=== PATIENT | male | born 1965 | race Caucasian/White ===

== ENCOUNTER 2019-09-29 19:49 | Emergency (ER) | payer OTHER, SELFPAY ==
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
[2019-09-29 20:00] VITALS: BP 119/74; PULSE 92; RESP 18; TEMP 35.9; O2SAT 100
[2019-09-29 20:23] LABS: Basophils Percent Auto 0.3 % (0.2-1.2); Eosinophils Absolute Auto 0.1 K/mm3 (0-0.3); Eosinophils Percent Auto 1.3 % (0-4.4); Hematocrit 36.8 % (42.0-52.0); Hemoglobin 12.2 g/dL (14.0-18.0); Immature Granulocyte Absolute 0.02 K/mm3 (0.00-0.031); Immature Granulocyte Percent A 0.3 % (0-0.5); Lymphocytes Absolute Auto 1.71 K/mm3 (0.9-3.2); Lymphocytes Percent Auto 26.8 % (18.3-44.2); Mean Corpuscular HGB Conc 33.2 g/dl (32-36); Mean Corpuscular Hemoglobin 33.2 pg (26-34); Mean Corpuscular Volume 100.3 fl (80-100); Mean Platelet Volume 10.5 fl (7.4-10.4); Monocytes Absolute Auto 0.5 K/mm3 (0.1-0.6); Monocytes Percent Auto 8.2 % (2.6-8.5); Neutrophils Percent Auto 63.1 % (45.5-73.1); Platelet Count Result 344 k/mm3 (150-375); Red Blood Count 3.67 M/mm3 (4.6-6.20); Red Cell Distribution Width 13.3 % (11.5-14.5); White Blood Count 6.4 K/mm3 (4.5-10.0)
[2019-09-29 20:35] LABS: Ethanol < 10 mg/dL (<10)
[2019-09-29 20:57] LABS: Add Urine Microscopic? NO; Appearance Urine Clear (Clear); Bilirubin Urine Negative (Negative); Blood Urine Negative (Negative); Color Urine Yellow (Yellow); Glucose Urine UA Negative (Negative); Ketones Urine Negative (Negative); Leukocyte Esterase Ur Negative LEU/UL (Negative); Nitrate Urine Negative (Negative); Protein Urine Negative (Negative); Specific Grav Ur 1.015 (1.001-1.035); Urobilinogen Urine Negative mg/dL (<2.0)
[2019-09-29 21:05] LABS: Barbiturate Screen Urine Negative (Negative); Benzodiazepines Screen Urine Negative (Negative)
[2019-09-29 21:07] LABS: Amphetamine Screen Urine Negative (Negative); Cannabinoid Screen Urine Positive (Negative); Cocaine Screen Urine Negative (Negative); Opiate Screen Urine Positive (Negative); Phencyclidine Screen Urine Negative (Negative)
[2019-09-29] MEDS: OLANZapine 10 MG INJ VIAL IM (21:08)
[2019-09-29 21:10] LABS: Methadone Screen Urine Negative (Negative)
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
[2019-09-29 21:35] LABS: Alanine Aminotransferase 17 U/L (4-50); Albumin Level 4.5 g/dL (3.5-5.1); Alkaline Phosphatase 55 U/L (38-126); Aspartate Amino Transferase 30 U/L (17-59); Bilirubin,Total 0.2 mg/dL (0.2-1.3); Blood Urea Nitrogen 13 mg/dL (9-20); Calcium 9.1 mg/dL (8.4-10.2); Carbon Dioxide 25 mmol/L (22-30); Chloride 103 mmol/L (98-107); Estimated Glomerular Filt Rate > 60; Glucose 121 mg/dL (75-110); Potassium 3.8 mmol/L (3.4-5.0); Sodium 138 mmol/L (137-145)
--- NOTE | 2019-09-29 21:46 | PC.NURSE ---
Bushra LOPES here at this time.
--- NOTE | 2019-09-29 22:21 | PC.NURSE ---
Addendum entered by Flavio Arizmendi RN 09/30/19 07:01: Pt removed from lockable restraints and put into hand cuffs per [employer]. Original Note: Pt never descalated and was discharged into [facility] custody. Pt remosved from lockable restraints and pu
== END 2019-09-29 22:34 ==
LOC: ANHED 21:44
PROVIDERS: Emergency Provider Emergency Medicine; PCP Emergency Medicine
DX: R45.851 Suicidal ideations (principal); F31.9 Bipolar disorder, unspecified; F20.9 Schizophrenia, unspecified; E11.9 Type 2 diabetes mellitus without complications; I10 Essential (primary) hypertension; E78.5 Hyperlipidemia, unspecified; E03.9 Hypothyroidism, unspecified; Z87.891 Personal history of nicotine dependence
CPT/HCPCS: 36415; 80053; 80307; 81003; 84443; 85025; 96372; 99283

== ENCOUNTER 2019-12-25 23:51 | Emergency (ER) | payer OTHER, SELFPAY ==
--- NOTE | ~2019-12-25 | XR_ITS ---
EXAMINATION: XR ankle LT min 3V DATE: 12/26/2019 00:37 INDICATION: Left ankle pain. TECHNIQUE: 4 views of left ankle were obtained. COMPARISON: None. FINDINGS: Bone alignment is normal. No fracture. There is mild osteoarthritis of talonavicular joint. There are enthesophytes at the posterior and plantar aspects of calcaneal tuberosity. Ankle soft tis brit swelling is noted. IMPRESSION: 1. Mild osteoarthritis of talonavicular joint. Reviewed, dictated and finalized at location A.
[2019-12-25 23:59] VITALS: BP 129/65; PULSE 106; RESP 21; TEMP 36.9; O2SAT 100
--- NOTE | 2019-12-26 00:47 | PC.NURSE ---
Patient requested IV to be removed, stated it was giving me anxiety.
[2019-12-26 00:48] LABS: Basophils Percent Auto 0.5 % (0.2-1.2); Eosinophils Absolute Auto 0.3 K/mm3 (0-0.3); Eosinophils Percent Auto 3.2 % (0-4.4); Hematocrit 30.1 % (42.0-52.0); Hemoglobin 10.2 g/dL (14.0-18.0); Immature Granulocyte Absolute 0.02 K/mm3 (0.00-0.031); Immature Granulocyte Percent A 0.2 % (0-0.5); Lymphocytes Absolute Auto 2.06 K/mm3 (0.9-3.2); Lymphocytes Percent Auto 25.7 % (18.3-44.2); Mean Corpuscular HGB Conc 33.9 g/dl (32-36); Mean Corpuscular Hemoglobin 34.1 pg (26-34); Mean Corpuscular Volume 100.7 fl (80-100); Monocytes Absolute Auto 0.7 K/mm3 (0.1-0.6); Monocytes Percent Auto 9.2 % (2.6-8.5); Neutrophils Absolute Auto 4.9 K/mm3 (1.3-6.7); Neutrophils Percent Auto 61.2 % (45.5-73.1); Platelet Count Result 341 k/mm3 (150-375); Red Blood Count 2.99 M/mm3 (4.6-6.20); Red Cell Distribution Width 13.2 % (11.5-14.5)
[2019-12-26 00:57] LABS: Prothrombin Time 12.7 Seconds (11.1-14.7)
[2019-12-26 00:58] LABS: Lactic Acid Reflex 1.1 mmol/L (0.7-2.1)
[2019-12-26 00:59] LABS: Alanine Aminotransferase 66 U/L (4-50); Albumin Level 3.5 g/dL (3.5-5.1); Alkaline Phosphatase 83 U/L (38-126); Aspartate Amino Transferase 96 U/L (17-59); Bilirubin,Total 0.3 mg/dL (0.2-1.3); Blood Urea Nitrogen 8 mg/dL (9-20); Calcium 8.2 mg/dL (8.4-10.2); Carbon Dioxide 25 mmol/L (22-30); Chloride 101 mmol/L (98-107); Estimated CRCL calculation 100 ml/min; Estimated Glomerular Filt Rate > 60; Glucose 214 mg/dL (75-110); Potassium 3.9 mmol/L (3.4-5.0); Sodium 131 mmol/L (137-145)
[2019-12-26 01:00] LABS: Partial Thromboplastin Time 31.4 SECONDS (22.3-36.8)
--- NOTE | 2019-12-26 01:15 | PC.NURSE ---
Patient states he is starting to have a panic attack and would like to leave. EDP Tanner notified.
[2019-12-26 01:51] VITALS: BP 142/60; PULSE 100; RESP 14; O2SAT 100
--- NOTE | 2019-12-26 02:15 | ED.GENADULT ---
HPI - General Adult General Chief complaint: Skin/Abscess/Foreign Body Stated complaint: left foot swollen Time Seen by Provider: 12/26/19 00:09 Source: RN notes reviewed History of Present Illness HPI narrative: Patient presents emergency department from home for swelling of his left lower extremity. Patient states symptoms began approximately 3 days ago he notes some swelling to his left ankle up to his mid carroll with erythema present denies any wounds he states it is tender to palpation but denies any trauma patient denies any fevers or chills chest pain shortness of breath or any other symptoms states he is a diabetic. Related Data Allergies Allergy/AdvReac Type Severity Reaction Status Date / Time ibuprofen Allergy Unknown Hives Verified 12/25/19 23:58 Review of Systems Review of Systems: Narrative: Gen.: Denies fevers or chills Eyes: Denies eye pain or visual change ENT: Denies congestion Respiratory: Denies shortness of breath or cough CV: Denies chest pain or palpitations GI: Denies abdominal pain nausea, emesis or diarrhea Musculoskeletal: See HPI Neuro: Denies numbness, tingling, weakness or focal weakness Skin: Denies rash notes erythema left lower extremity Except as documented, all other systems reviewed and negative [facility] Past Medical History Medical History Bipolar 1 disorder Depression DM (diabetes mellitus) H/O: HTN (hypertension) HLD (hyperlipidemia) Hypothyroid Schizophrenia Social History Social History Smoking status: Former smoker Alcohol intake: current Gender identity (if verbalized by the patient): Male Exam Narrative: Exam Narrative: APPEARANCE: No acute distress, nontoxic, resting in bed EYES: EOMI HEENT: Normocephalic, atraumatic, OMM RESPIRATORY: No respiratory distress Clear to auscultation bilaterally with no rhonchi wheezing or rales. CARDIOVASCULAR: Regular rate and rhythm without murmurs rubs or gallops. ABDOMINAL: Soft, nontender, nondistended, no rebound or guarding MUSCULOSKELETAl: Moves all extremities. No clubbing, cyanosis 2+ edema in the left lower extremity, erythema of the left ankle up to the mid carroll no open wounds no tenderness to palpation of the left ankle or knee with full range of motion of both, dorsalis pedis pulse 2+ neurovascular intact NEURO: Awake and alert x 3. Following commands, speech normal, no focal deficits SKIN:: Warm, dry. No rashes lesions or abrasions PSYCHIATRIC: Normal affect/mood, Course Course Emergency Course: Patient is up walking on the foot Discussed with patient concern of cellulitis discussed need for rule out blood clot patient initially had an IV in an attempt to take an IV out and I discussed need for initial course of IV antibiotics and request for admission for further treatment patient is refusing IV to be reestablished and refusing to stay. We had a long discussion with all risks and benefits discussed including risk of worsening cellulitis, sepsis, loss of leg blood clot in the left leg pulmonary embolism, cardiopulmonary arrest and . The patient continues to refuse admission. The patient is a and alert x4. I discussed with him that if he is leaving AMA and started on oral antibiotics and we discussed this the patient being set up for a ultrasound of his leg in the morning. No middle send the patient up for his ultrasound in the morning the patient states he can no longer stay here and wants to leave immediately. I discussed with him I have not talked to Dr. Wright to set up his ultrasound and I discussed giving Lovenox and the patient again is refusing any further injections and refusing Lovenox. The patient was given discharge instructions and told he may return anytime he was given prescription for Keflex AMA form was filled out Vital Signs Vital signs: Vital Signs Temperature 98.4 F 12/25/19 23:59 Pulse Rate 10
[2019-12-26] MEDS: CEPHALEXIN 500 MG CAPSULE PO (02:18)
== END 2019-12-26 02:27 | disposition left against medical advice (07) ==
PROVIDERS: Emergency Provider Emergency Medicine; PCP Emergency Medicine
DX: L03.116 Cellulitis of left lower limb (principal); E11.9 Type 2 diabetes mellitus without complications; Z87.891 Personal history of nicotine dependence; I10 Essential (primary) hypertension; E78.5 Hyperlipidemia, unspecified; E03.9 Hypothyroidism, unspecified
CPT/HCPCS: 36415; 73610; 80053; 83605; 85025; 85610; 85730; 87040; 99283; A9270

== ENCOUNTER 2019-12-26 07:40 | Outpatient (CLI) | payer OTHER, SELFPAY ==
--- NOTE | ~2019-12-26 | US_ITS ---
EXAMINATION: US venous doppler [facility] DATE: 12/26/2019 08:15 INDICATION: Left calf pain. TECHNIQUE: Grayscale ultrasound images without and with compression and Doppler ultrasound images of the left lower extremity veins were obtained. COMPARISON: None. FINDINGS: The visualized portions of left common femoral vein, profunda (deep) femoral vein, femoral vein, popl iteal vein, peroneal veins, posterior tibial veins, and greater saphenous vein outflow are patent. IMPRESSION: 1. No deep venous thrombosis. Reviewed, dictated and finalized at location A.
== END 2019-12-26 07:41 | disposition home or self-care (01) ==
LOC: ANHIMG 07:44
PROVIDERS: PCP Emergency Medicine; Visit Provider Emergency Medicine
DX: M79.662 Pain in left lower leg (principal)
CPT/HCPCS: 93971

== ENCOUNTER 2020-01-01 19:09 | Emergency (ER) | payer OTHER, SELFPAY ==
[2020-01-01 19:07] VITALS: BP 132/84; PULSE 108; RESP 20; TEMP 36.7; O2SAT 97
--- NOTE | 2020-01-01 20:11 | ED.GENADULT ---
HPI - General Adult General Chief complaint: Unspecified <DALE Jurado Last Filed: 01/01/20 20:45> Stated complaint: out of meds <DALE Jurado Last Filed: 01/01/20 20:45> Time Seen by Provider: 01/01/20 19:56 <DALE Jurado Last Filed: 01/01/20 20:45> Source: patient, old records reviewed and other <DALE Jurado Last Filed: 01/01/20 20:45> Mode of arrival: EMS <DALE Jurado Last Filed: 01/01/20 20:45> Limitations: no limitations <DALE Jurado Last Filed: 01/01/20 20:45> History of Present Illness HPI narrative: Patient is a 54-year-old male who presents from home for evaluation of wanting his medications filled patient with history of psychosis lives in an apartment was seen by his specialist Dr. Townsend today who filled his medications patient is yet to go and get them. Patient with history of schizophrenia tardive dyskinesia patient denies any pain at this time does note some reflux and anxiety. Patient notes that he feels comfortable to go home and prefers to be discharged at this time. Patient has been offered some Ativan as recommended by his primary care and is in agreement with this. Patient has no other complaints and denies any injury trauma or recent illness <DALE Jurado Last Filed: 01/01/20 20:45> Related Data Home medications: Home Medications Medication Instructions Recorded Confirmed aripiprazole mg 01/01/20 01/01/20 clonazepam 01/01/20 famotidine 01/01/20 levothyroxine 01/01/20 lisinopril 01/01/20 loxapine succinate mg 01/01/20 metformin mg 01/01/20 simvastatin mg 01/01/20 trihexyphenidyl 01/01/20 venlafaxine mg PO 01/01/20 <DALE Jurado Last Filed: 01/01/20 20:45> Allergies/adverse reactions: Allergies Allergy/AdvReac Type Severity Reaction Status Date / Time ibuprofen Allergy Unknown Hives Verified 12/25/19 23:58 <DALE Jurado Last Filed: 01/01/20 20:45> Review of Systems Review of Systems: All systems reviewed & are unremarkable except as noted in HPI and below <Wilton Doan PA-C - Last Filed: 01/01/20 20:45> PMFSH Past Medical History Medical History: Medical History Bipolar 1 disorder Depression DM (diabetes mellitus) H/O: HTN (hypertension) HLD (hyperlipidemia) Hypothyroid Schizophrenia <Wilton Doan PA-C - Last Filed: 01/01/20 20:45> Surgical History Surgical History: Surgical History Surgical history unknown <Wilton Doan PA-C - Last Filed: 01/01/20 20:45> Social History Social History: Social History Smoking status: Former smoker Alcohol intake: current Gender identity (if verbalized by the patient): Male <Wilton Doan PA-C - Last Filed: 01/01/20 20:45> Exam Narrative: Exam Narrative: GENERAL: Well-appearing, well-nourished, and in no acute distress. HEAD: Normocephalic, atraumatic. EYES: PERRLA and EOMI. ENT: Nares clear, no rhinorrhea or epistaxis. Mucous membranes moist. CHEST: Clear to auscultation. No respiratory distress. No wheezes rales or rhonchi HEART: Regular rate and rhythm. No murmur heard. Normal peripheral pulses. ABDOMEN: Soft, nontender, nondistended EXTREMITIES: Normal range of motion. No edema. SKIN: Warm, dry, no rash. NEURO: No focal deficits. Alert and oriented x3. Cranial nerves II through XII grossly intact. Patient with tremor PSYCH: Normal mood and affect. <Wilton oDan PA-C - Last Filed: 01/01/20 20:45> Course Course Emergency Course: Patient in the room in no distress aware of case findings treatment plan and diagnosis agreeing to follow-up as directed or to return if symptoms worsen or concerns <Wilton Doan PA-C - Last Filed:
[2020-01-01] MEDS: FAMOTIDINE 20 MG TABLET PO (20:15)
[2020-01-01] MEDS: LORAZEPAM 0.5 MG TABLET PO (20:15)
--- NOTE | 2020-01-01 20:35 | PC.NURSE ---
Pt sister stating that pt cannot come home to her house. Pt requests us to call Daryl at [phone]. Call attempted, no answer. Pt made aware. Pt adamantly refusing any treatment at this time. Stating If you try to put an IV in me we will have big problems.
--- NOTE | 2020-01-01 20:43 | PC.NURSE ---
Daryl, pt friend returned call. States he can pick him up in 30 min. EDP made aware.
[2020-01-01 21:04] VITALS: BP 130/70; PULSE 80; RESP 20; O2SAT 99
== END 2020-01-01 21:05 | disposition left against medical advice (07) ==
PROVIDERS: Emergency Provider Emergency Medicine; PCP Emergency Medicine
DX: F41.9 Anxiety disorder, unspecified (principal); F31.9 Bipolar disorder, unspecified; E11.9 Type 2 diabetes mellitus without complications; I10 Essential (primary) hypertension; E78.5 Hyperlipidemia, unspecified; F20.9 Schizophrenia, unspecified; Z87.891 Personal history of nicotine dependence; Z79.84 Long term (current) use of oral hypoglycemic drugs
CPT/HCPCS: 99283; A9270

== ENCOUNTER 2020-09-18 12:14 | Outpatient (CLI) | payer OTHER, SELFPAY ==
--- NOTE | ~2020-09-18 | CT_ITS ---
EXAMINATION:CT lung screening DATE: 09/18/2020 12:35 INDICATION: Personal history of tobacco dependence. Current smoker with 30 pack year history. TECHNIQUE: Computed tomography (CT) of the chest was performed without intravenous contrast. Automate d exposure control and iterative reconstruction technique were employed. The dose-length product (DLP ) was 90.66 mGy-cm. COMPARISON: Chest CT 08/10/2018 FINDINGS: There is mild emphysema. There is mild scarring at the lung apices. There are patchy ground glass opacities in the lingula. There is a new 11 mm nodule in left upper lobe. A calcified right nae g nodule and calcified right hilar lymph nodes are consistent with old granulomatous disease. No pleu ral effusion. There is stable mild mediastinal lymphadenopathy, likely reactive. There is a small sli ding hiatal hernia. Calcifications in the spleen are consistent with old granulomatous disease. There is a 2.5 cm cyst in left kidney. There is an old healed right rib fracture. IMPRESSION: 1. Lung-RADS category 4B: Very suspicious. Given the findings in the lingula, noncontrast chest CT is recommended in 1 month to exclude infection prior to proceeding with CT-guided biopsy. Reviewed, dictated and finalized at location A. NT ACQUISITION CONSULTANT IMPRESSION: 1. Lung-RADS category 4B: Very suspicious. Given the findings in the lingula, n oncontrast chest CT is recommended in 1 month to exclude infection prior to pro ceeding with CT-guided biopsy.
== END 2020-09-18 12:15 | disposition home or self-care (01) ==
LOC: ANHIMG 12:22
PROVIDERS: PCP Internal Medicine; Visit Provider Internal Medicine
DX: Z12.2 Encounter for screening for malignant neoplasm of respiratory organs (principal); Z87.891 Personal history of nicotine dependence; R91.8 Other nonspecific abnormal finding of lung field
CPT/HCPCS: 71271

== ENCOUNTER 2020-12-15 13:49 | Outpatient (CLI) | payer OTHER, SELFPAY ==
--- NOTE | ~2020-12-15 | CT_ITS ---
EXAMINATION:CT diagnostic chest wo con DATE: 12/15/2020 14:32 INDICATION: Lung nodule. TECHNIQUE: Computed tomography (CT) of the chest was performed without intravenous contrast. Automate d exposure control and iterative reconstruction technique were employed. The dose-length product (DLP ) was 102.52 mGy-cm. COMPARISON: Chest CT 09/18/2020, 08/10/18 FINDINGS: There is scarring at the lung apices. There is mild emphysema. Calcified right lung nodules and calcified right hilar and mediastinal lymph nodes are consistent with old granulomatous disease. There is a 2 mm nodule in right upper lobe, likely benign. There is a 10 mm nodule in left upper lob e abutting the major fissure. No pleural effusion. The heart size is normal. There are coronary arter y calcifications. No pericardial effusion. Calcifications in the spleen are consistent with old granu lomatous disease. There is a 2.8 cm cyst in left kidney. There are old healed right rib fractures. IMPRESSION: 1. 10 mm left upper lobe pulmonary nodule, stable from 09/18/2020 and new from 08/10/2018. The shape of the nodule suggests infection/scarring may be more likely than malignancy. Consider PET/CT. Reviewed, dictated and finalized at location B. IMPRESSION: 1. 10 mm left upper lobe pulmonary nodule, stable from 09/18/2020 and new from . The shape of the nodule suggests infection/scarring may be more likel y than malignancy. Consider PET/CT.
== END 2020-12-15 13:50 | disposition home or self-care (01) ==
PROVIDERS: PCP Internal Medicine; Visit Provider Internal Medicine
DX: R91.1 Solitary pulmonary nodule (principal)
CPT/HCPCS: 71250

== ENCOUNTER 2021-03-09 13:32 | Outpatient (CLI) | payer OTHER, SELFPAY ==
--- NOTE | ~2021-03-09 | CT_ITS ---
EXAMINATION: CT diagnostic chest wo con DATE: 03/09/2021 14:04 INDICATION: Left upper lobe pulmonary nodule TECHNIQUE: Computed tomography (CT) of the chest was performed without intravenous contrast. Automate d exposure control and iterative reconstruction technique were employed. Exam dose: 167.31 mGy-cm to minal exam DLP. COMPARISON: 12/15/2020 CT chest 09/18/2020 CT lung screening 08/10/2018 CT chest FINDINGS: There is a focal approximately 1 cm area of irregular soft tissue density in the posterior left upper lobe with some associated anterior tenting of the greater fissure at this location. There was some focal tree-in-bud infiltrate in this location on 08/10/2018 CT chest. Post-infectious residua l benign chronic scarring is suggested. The appearance is stable since 09/18/2020. Follow-up CT imagin g in 6 months is recommended to document expected stability. Calcified right lower lobe pulmonary granulomas, calcified right hilar nodes and calcified hepatic an d splenic granulomas, consistent with old granulomatous disease. There is mild emphysema. No pulmonary infiltrate or consolidation or pulmonary mass lesion is noted otherwise. Normal heart size. Coronary artery calcification. No pericardial or pleural effusion. No thoracic aortic aneurysm. No hilar or mediastinal mass lesion or lymphadenopathy. Very small sliding hiatal hernia. Normal morphology of the adrenal glands. 2.5 cm left renal cyst. No suspicious osteolytic or osteoblastic lesions. IMPRESSION: Probable chronic focal postinfectious chronic benign scarring in the posterior left uppe r lobe; recommend [address] follow-up to document stability Reviewed, dictated and finalized at Location A. Reviewed, dictated and finalized at location A. IMPRESSION: Probable chronic focal postinfectious chronic benign scarring in t he posterior left upper lobe; recommend [address] follow-up to document stabil ity
== END 2021-03-09 13:33 | disposition home or self-care (01) ==
PROVIDERS: PCP Internal Medicine; Visit Provider Internal Medicine
DX: R91.1 Solitary pulmonary nodule (principal); R91.8 Other nonspecific abnormal finding of lung field
CPT/HCPCS: 71250

== ENCOUNTER 2022-01-11 11:49 | Emergency (ER) | payer OTHER, SELFPAY ==
[2022-01-11 11:55] VITALS: BP 173/87; PULSE 68; RESP 17; TEMP 36.4; O2SAT 100
[2022-01-11 12:00] LABS: Glucose Point of Care 158 mg/dl (65-105)
--- NOTE | 2022-01-11 12:04 | ECG_ITS ---
Measurements Intervals [place] Rate: 57 P: 42 AK: 143 QRS: 63 QRSD: 102 T: 72 QT: 416 QTc: 407 Interpretive Statements SINUS BRADYCARDIA WITH SINUS ARRHYTHMIA BASELINE ARTIFACT NONSPECIFIC ST AND T-WAVE ABNORMALITY BORDERLINE ECG NO PREVIOUS ECG AVAILABLE FOR COMPARISON Electronically Signed On 01-11-2022 15:03:07 CDT by Preston White M.D.
--- NOTE | 2022-01-11 12:14 | ED.GENADULT ---
HPI - General Adult General Chief complaint: Neuro Symptoms/Deficit Stated complaint: eyes are rolling back Time Seen by Provider: 01/11/22 12:05 History of Present Illness HPI narrative: Sister days that patient's eyes rolled back in his head, but he didn't pass out. She gave him some chocolate mild and he says he feels better. Pt is refusing further testing now and wants to sign out and go home. Pt had not eaten and says he thinks his blood sugar was low. Pt agrees to follow up with PCP. Related Data Home Medications Medication Instructions Recorded Confirmed aripiprazole 5 mg tablet mg 01/01/20 01/01/20 clonazepam 0.5 mg tablet 01/01/20 famotidine 40 mg tablet 01/01/20 levothyroxine 88 mcg tablet 01/01/20 lisinopril 20 mg tablet 01/01/20 loxapine succinate 10 mg capsule mg 01/01/20 metformin 500 mg tablet mg 01/01/20 simvastatin 40 mg tablet mg 01/01/20 trihexyphenidyl 5 mg tablet 01/01/20 venlafaxine 75 mg capsule,extended mg PO 01/01/20 release 24 hr Allergies Allergy/AdvReac Type Severity Reaction Status Date / Time ibuprofen Allergy Unknown Hives Verified 12/25/19 23:58 Review of Systems Review of Systems: All systems reviewed & are unremarkable except as noted in HPI and below PMFSH Past Medical History Medical History (Updated 01/11/22 @ 12:21 by Ismael Brown III, ) Bipolar 1 disorder Depression DM (diabetes mellitus) H/O: HTN (hypertension) HLD (hyperlipidemia) Hypothyroid Schizophrenia Surgical History Surgical History Surgical history unknown Social History Social History Smoking status: Former smoker Alcohol intake: current Gender identity (if verbalized by the patient): Male Exam Const: General: cooperative, comfortable, no acute distress and awake Nutritional Appearance: thin Orientation/consciousness: patient oriented x3 Limitations: no limitations HENMT: Head: normal to inspection Ears: hearing grossly normal bilaterally Mouth: Yes Normal oral and palatal mucosa present Neck: Neck: normal visual inspection, full ROM and no meningeal signs Chest: Chest palpation & inspection: normal inspection of the chest Resp: Effort & Inspection: normal respiratory effort Auscultation: clear to auscultation bilaterally Cardio: Rate: bradycardic Rhythm: regular rhythm GI: GI Palp: Yes Soft to palpation Percussion: Yes normal to percussion Auscultation: normal bowel sounds Skin: General skin exam: normal color Lesions: no lesions Rashes: no rashes Wounds: no wounds Neuro: General: patient oriented x3 Cranial nerves: Yes CN's II-XII intact bilaterally and Yes Nystagmus not present Speech: normal speech Motor exam (neuro): 5/5 motor strength present throughout Sensory Exam: normal sensation Extrem: General: normal to inspection and no pedal edema Psych: Appearance: grossly normal Speech and movement: Normal speech and movement present Affect: normal affect Attitude: cooperative Thought content: Yes Normal thought content present Insight: Fair insight present (Psych) Judgement: Fair judgement present (Psych) Course Course Emergency Course: pt says he is fine and refuses further testing. Pt will sign AMA and will go see PCP Vital Signs Vital signs: Vital Signs Temperature 97.6 F 01/11/22 11:55 Pulse Rate 68 01/11/22 11:55 Respiratory Rate 17 01/11/22 11:55 Blood Pressure 173/87 H 01/11/22 11:55 Pulse Oximetry 100 01/11/22 11:55 Oxygen Delivery Room Air 01/11/22 11:55 Temperature 97.6 F 01/11/22 11:55 Pulse Rate 68 01/11/22 11:55 Respiratory Rate 17 01/11/22 11:55 Blood Pressure 173/87 H 01/11/22 11:55 Pulse Oximetry 100 01/11/22 11:55 Oxygen Delivery Room Air 01/11/22 11:55 Medical Decision Making Vital Signs Vital Signs: Vital Signs Temperature 97.6 F 12/23
== END 2022-01-11 12:33 | disposition left against medical advice (07) ==
PROVIDERS: Emergency Provider Emergency Medicine; PCP Internal Medicine
DX: E11.649 Type 2 diabetes mellitus with hypoglycemia without coma (principal); I10 Essential (primary) hypertension; E78.5 Hyperlipidemia, unspecified; E03.9 Hypothyroidism, unspecified; F31.9 Bipolar disorder, unspecified; F20.9 Schizophrenia, unspecified; Z79.84 Long term (current) use of oral hypoglycemic drugs; Z87.891 Personal history of nicotine dependence
CPT/HCPCS: 82948; 93005; 99283

== ENCOUNTER 2022-01-27 12:42 | Outpatient (CLI) | payer OTHER, SELFPAY ==
--- NOTE | ~2022-01-27 | CT_ITS ---
EXAMINATION: CT diagnostic chest wo con DATE: 01/27/2022 13:03 INDICATION: Left upper lobe nodule TECHNIQUE: Computed tomography (CT) of the chest was performed without intravenous contrast. Automate d exposure control and iterative reconstruction technique were employed. Exam dose: 160.98 mGy-cm to minal exam DLP. COMPARISON: 03/09/2021 CT chest 12/15/2020 CT chest 09/18/2020 CT lung screening 08/10/2018 CT chest FINDINGS: Stable probable approximately 1 cm scar posterior segment of the left upper lobe with assoc iated mild tenting of the greater fissure. This is stable since September 18, 2020, likely residual po stinfectious scarring. There is interval patchy groundglass infiltrate in the right apical area since the prior CT examinati ons, which may represent mild infectious or inflammatory process. The lungs are otherwise clear of infiltrate or consolidation. There is bilateral hyperinflation. Normal heart size. Coronary artery calcification. No pericardial effusion. No thoracic aortic aneurysm or dissection. No hilar or mediastinal mass lesion or lymphadenopathy. Ca lcified right hilar and subcarinal nodes and calcified right lower lobe pulmonary granuloma, calcifie d hepatic and splenic granulomas, consistent with old granulomatous disease. Approximately 2.7 cm upper pole posterior left renal cyst No suspicious osteolytic or osteoblastic lesions. IMPRESSION: Stable posterior segment left upper lobe scar, unchanged since 09/18/2020 Patchy groundglass infiltrate, right apical area, which may be due to infectious or inflammatory proc ess COPD Old granulomatous disease Reviewed, dictated and finalized at [facility]. Reviewed, dictated and finalized at [facility]. IMPRESSION: Stable posterior segment left upper lobe scar, unchanged since 08/25 Patchy groundglass infiltrate, right apical area, which may be due to infectiou s or inflammatory process COPD Old granulomatous disease
== END 2022-01-27 12:43 | disposition home or self-care (01) ==
PROVIDERS: PCP Internal Medicine; Visit Provider Internal Medicine
DX: R91.1 Solitary pulmonary nodule (principal); J44.9 Chronic obstructive pulmonary disease, unspecified; R91.8 Other nonspecific abnormal finding of lung field
CPT/HCPCS: 71250

== ENCOUNTER 2022-04-22 12:25 | Emergency (ER) | payer OTHER, SELFPAY ==
--- NOTE | ~2022-04-22 | XR_ITS ---
XR chest 1V portable 04/22/2022 13:31 Indication: Chest pain Procedure: AP portable chest Comparison: 03/17/2012 Findings: Heart size normal. The lungs are hyperinflated which is consistent with, but not diagnostic of chronic obstructive pulmonary disease. No focal pneumonia, edema, pleural effusion or pneumothora x. There are healed right fifth and sixth rib fractures. Impression: 1: No acute cardiopulmonary disease. Reviewed, dictated and finalized at [facility]. Impression: 1: No acute cardiopulmonary disease.
[2022-04-22 12:48] VITALS: BP 102/72; PULSE 80; RESP 14; TEMP 36.6; O2SAT 97
--- NOTE | 2022-04-22 12:49 | ECG_ITS ---
Measurements Intervals [place] Rate: 77 P: 69 TN: 144 QRS: 28 QRSD: 100 T: 61 QT: 366 QTc: 416 Interpretive Statements SINUS RHYTHM NORMAL ECG COMPARED TO ECG 01/11/2022 12:01:32 PREVIOUSLY SEEN T-WAVE ABNORMALITY HAS RESOLVED Electronically Signed On 04-25-2022 14:23:59 CDT by Atul Avery M.D.
[2022-04-22 12:53] VITALS: PULSE 79
--- NOTE | 2022-04-22 12:53 | ED.CHESTPAIN ---
HPI - Chest Pain General Chief Complaint: Chest Pain Stated Complaint: chest pain, resolved Time Seen by Provider: 04/22/22 12:41 Source: patient and EMS Mode of arrival: EMS Limitations: no limitations History of Present Illness HPI narrative: [age] years old white male came to the emergency room from home by ambulance complaining of left chest pain, heaviness, worse with deep breathing, started at rest, lasted for less than 15 minutes, intermittent over the last 2 hours. Currently patient is asymptomatic. Patient had cannabis on board few minutes prior to that. History of diabetes, hypertension, hyperlipidemia, bipolar, schizophrenia, depression Related Data Home Medications Medication Instructions Recorded Confirmed aripiprazole 5 mg tablet mg 01/01/20 01/01/20 clonazepam 0.5 mg tablet 01/01/20 famotidine 40 mg tablet 01/01/20 levothyroxine 88 mcg tablet 01/01/20 lisinopril 20 mg tablet 01/01/20 loxapine succinate 10 mg capsule mg 01/01/20 metformin 500 mg tablet mg 01/01/20 simvastatin 40 mg tablet mg 01/01/20 trihexyphenidyl 5 mg tablet 01/01/20 venlafaxine 75 mg capsule,extended mg PO 01/01/20 release 24 hr Allergies Allergy/AdvReac Type Severity Reaction Status Date / Time ibuprofen Allergy Unknown Hives Verified 04/22/22 12:53 Review of Systems Review of Systems: All systems reviewed & are unremarkable except as noted in HPI and below PMFSH Past Medical History Medical History (Updated 04/22/22 @ 15:10 by Charlene Suero MD) Bipolar 1 disorder Depression DM (diabetes mellitus) H/O: HTN (hypertension) HLD (hyperlipidemia) Hypothyroid Schizophrenia Surgical History Surgical History Surgical history unknown Social History Social History Smoking status: Former smoker Alcohol intake: current Gender identity (if verbalized by the patient): Male Exam Narrative: General appearance: Well-developed, well-nourished Skin: Normal color Head: Normocephalic, nontraumatic Eyes: Clear conjunctiva ENT: Oropharynx normal, ears normal, nose normal Neck: Supple, nontender Chest and respiratory: Airway patent, no respiratory distress, no accessory muscle use Heart: Regular rate/rhythm Abdomen: Soft, nontender, no organomegaly, quiet bowel sounds Vascular: Normal peripheral pulses, normal capillary refill. Musculoskeletal: Normal range of motion, nontender back Neurologic: Alert and oriented ?3, HEATING TECHNICIAN is normal as tested, no gross motor deficit Course Reevaluation(s) Reevaluation #1: Patient left AGAINST MEDICAL ADVICE. I declare that I have personally explained to the patient the risks and consequences involved in leaving this facility at this time. the benefits of continued treatment and/or hospitalization. And the alternatives. If any. to continued treatment and/or hospitalization. if applicable.I have not identified any psychosis, drugs, mental illness, or medical illness that alters decision-making capacity (reasoning abilities ). Vital Signs Vital signs: Vital Signs Temperature 36.6 C 04/22/22 12:48 Pulse Rate 80 04/22/22 12:48 Respiratory Rate 14 04/22/22 12:48 Blood Pressure 102/72 04/22/22 12:48 Pulse Oximetry 97 04/22/22 12:48 Oxygen Delivery Room Air 04/22/22 12:48 Temperature 36.6 C 04/22/22 12:48 Pulse Rate 79 04/22/22 12:53 Respiratory Rate 14 04/22/22 12:48 Blood Pressure 102/72 04/22/22 12:48 Pulse Oximetry 97 04/22/22 12:48 Oxygen Delivery Room Air 04/22/22 12:53 MDM - Chest Pain Differential Diagnosis Differential diagnosis: Likely
[2022-04-22 13:48] LABS: Basophils Absolute Auto 0.1 K/mm3 (0.0-0.1); Basophils Percent Auto 0.7 % (0.2-1.2); Eosinophils Absolute Auto 0.6 K/mm3 (0-0.3); Eosinophils Percent Auto 7.2 % (0-4.4); Immature Granulocyte Absolute 0.02 K/mm3 (0.00-0.031); Immature Granulocyte Percent A 0.2 % (0-0.5); Lymphocytes Absolute Auto 2.05 K/mm3 (0.9-3.2); Lymphocytes Percent Auto 25.1 % (18.3-44.2); Mean Corpuscular HGB Conc 35.1 g/dl (32-36); Mean Corpuscular Hemoglobin 34.2 pg (26-34); Mean Corpuscular Volume 97.4 fl (80-100); Mean Platelet Volume 9.4 fl (7.4-10.4); Monocytes Absolute Auto 0.7 K/mm3 (0.1-0.6); Monocytes Percent Auto 8.9 % (2.6-8.5); Neutrophils Absolute Auto 4.7 K/mm3 (1.3-6.7); Neutrophils Percent Auto 57.9 % (45.5-73.1); Platelet Count Result 267 k/mm3 (150-375); Red Cell Distribution Width 12.4 % (11.5-14.5); White Blood Count 8.2 K/mm3 (4.5-10.0)
--- NOTE | 2022-04-22 13:57 | PC.NURSE ---
The pt met me in the hallway asking to use the phone. I directed him to the phone. Pt informs me that he is calling for a ride because he is ready to go home. Dr. Suero informed. Pt has signed AMA paperwork. Pt is A&Ox4 and in no acute distress on leaving. Pt encouraged to return at any time.
[2022-04-22 13:58] LABS: Alanine Aminotransferase 26 U/L (6-50); Albumin Level 3.9 g/dL (3.5-5.1); Alkaline Phosphatase 67 U/L (38-126); Anion Gap 7 mmol/L (8-16); Aspartate Amino Transferase 33 U/L (17-59); Bilirubin,Total 0.3 mg/dL (0.2-1.3); Blood Urea Nitrogen 23 mg/dL (9-20); Calcium 8.8 mg/dL (8.4-10.2); Carbon Dioxide 28 mmol/L (22-30); Chloride 100 mmol/L (98-107); Estimated CRCL calculation 104 ml/min; Estimated Glomerular Filt Rate > 60; Glucose 103 mg/dL (65-110); Potassium 3.9 mmol/L (3.4-5.0); Sodium 135 mmol/L (137-145)
[2022-04-22 14:00] LABS: Partial Thromboplastin Time 38.4 SECONDS (22.3-36.8)
[2022-04-22 14:09] LABS: Troponin I < 0.012 ng/mL (0.000-0.034)
== END 2022-04-22 14:00 | disposition left against medical advice (07) ==
LOC: ANHED 12:56
PROVIDERS: Emergency Provider Emergency Medicine; PCP Internal Medicine
DX: R07.9 Chest pain, unspecified (principal); I10 Essential (primary) hypertension; E78.5 Hyperlipidemia, unspecified; E11.9 Type 2 diabetes mellitus without complications; E03.9 Hypothyroidism, unspecified; F31.9 Bipolar disorder, unspecified; F20.9 Schizophrenia, unspecified; Z79.84 Long term (current) use of oral hypoglycemic drugs; Z87.891 Personal history of nicotine dependence
CPT/HCPCS: 36415; 71045; 80053; 84484; 85025; 85610; 85730; 93005; 99284

== ENCOUNTER 2022-06-08 18:00 | Inpatient (IN) | payer OTHER, SELFPAY ==
[2022-06-08 18:07] VITALS: BP 158/59; PULSE 121; RESP 20; O2SAT 99
--- NOTE | 2022-06-08 18:22 | ED.OVERDOSE ---
HPI - Overdose General Chief Complaint: Overdose Stated Complaint: overdose Time Seen by Provider: 06/08/22 18:04 History of Present Illness HPI Narrative: Pt took overdose of 15 tinazadine and 15 tylenol with codeine in effort to kill himself. Pt says his mom is in hospital at [facility] and he wants to kill himself. Pt initially cooperative until he realized he was going to need to be admitted and then patient said he was walking out. Informed patient since he had tried to kill himself, that he could not leave. Pt became threatening and aggressive and tried to walk out and had to be physically restrained and then chemically restrained to prevent him from leaving. Related Data Home Medications Medication Instructions Recorded Confirmed aripiprazole 5 mg tablet mg 01/01/20 01/01/20 clonazepam 0.5 mg tablet 01/01/20 famotidine 40 mg tablet 01/01/20 levothyroxine 88 mcg tablet 01/01/20 lisinopril 20 mg tablet 01/01/20 loxapine succinate 10 mg capsule mg 01/01/20 metformin 500 mg tablet mg 01/01/20 simvastatin 40 mg tablet mg 01/01/20 trihexyphenidyl 5 mg tablet 01/01/20 venlafaxine 75 mg capsule,extended mg PO 01/01/20 release 24 hr Allergies Allergy/AdvReac Type Severity Reaction Status Date / Time ibuprofen Allergy Unknown Hives Verified 04/22/22 12:53 Review of Systems Review of Systems: All systems reviewed & are unremarkable except as noted in HPI and below PMFSH Past Medical History Medical History (Updated 06/08/22 @ 21:34 by Sydnie Cary MD) Bipolar 1 disorder Depression DM (diabetes mellitus) H/O: HTN (hypertension) HLD (hyperlipidemia) Hypothyroid Schizophrenia Surgical History Surgical History Surgical history unknown Social History Social History Smoking status: Former smoker Alcohol intake: current Gender identity (if verbalized by the patient): Male Exam Const: General: ill appearing Nutritional Appearance: thin Orientation/consciousness: patient oriented x3 Limitations: other limitations (suicidal) HENMT: Head: normal to inspection Mouth: Yes dry mucous membranes Eyes: Conjunctivae: conjunctivae normal Pupils: Equal, round and reactive pupils present EOM: EOMs intact bilaterally Neck: Neck: normal visual inspection and no lymphadenopathy Resp: Effort & Inspection: normal respiratory effort Auscultation: clear to auscultation bilaterally Cardio: Rate: regular rate Rhythm: regular rhythm Skin: General skin exam: normal color Rashes: no rashes Neuro: General: patient oriented x3, moves all extremities, no meningeal signs, no focal motor deficits and CN's II-XI intact bilaterally Cranial nerves: Yes Nystagmus not present Speech: normal speech Extrem: General: normal to inspection and no clubbing, cyanosis or edema Psych: Other: aggressive Course Course Emergency Course: pt was taken out of restraints and then threatened to leave again and had to be restrained a second time. Called dr sagastume and agreed to accept. discussed with dr rosales agrees to admit to ICU Vital Signs Vital signs: Vital Signs Pulse Rate 121 H 06/08/22 18:07 Respiratory Rate 20 06/08/22 18:07 Blood Pressure 158/59 H 06/08/22 18:07 Pulse Oximetry 99 06/08/22 18:07 Oxygen Delivery Room Air 06/08/22 18:07 Pulse Rate 88 06/08/22 21:41 Respiratory Rate 20 06/08/22 21:41 Blood Pressure 158/62 H 06/08/22 21:41 Pulse Oximetry 99 06/08/22 21:41 Oxygen Delivery Room Air 06/08/22 18:07 MDM - Overdose Lab Data Result diagrams: 06/08/22 19:17 06/08/22 19:17 Labs: Lab Results 06/08/22 06/08/22 06/08/22 Range/Units 19:16 19:17 19:17 WBC 13.3 H (4.5-10.0) K/mm3 RBC 4.16 L (4.6-6.20) M/mm3 Hgb 14.3 (14.0-18.0) g/dL Hct 43.3 (42.0-52.0) % MCV 104.1 H (80-100) fl [facility]
[2022-06-08] MEDS: SODIUM CHLORIDE 0.9% IV 1,000 ML 999 ML IV CONT (18:36)
[2022-06-08] MEDS: HALOPERIDOL LACTATE 5 MG/ML VIAL IM (18:38)
[2022-06-08] MEDS: LORazepam INJ (*CRX) 2 MG/ML VIAL 1 MG IV PUSH (18:38)
--- NOTE | 2022-06-08 18:51 | PC.NURSE ---
spoke with PERLA Nuñez at [facility]ion control jackson.
--- NOTE | 2022-06-08 19:15 | PC.NURSE ---
patient continues to pull against restraints and scream at staff. yelling racial slurrs at sitter and referring to this RN as Frank sterling
[2022-06-08 19:26] LABS: Basophils Absolute Auto 0.1 K/mm3 (0.0-0.1); Basophils Percent Auto 0.7 % (0.2-1.2); Eosinophils Absolute Auto 0.9 K/mm3 (0-0.3); Eosinophils Percent Auto 6.6 % (0-4.4); Hematocrit 43.3 % (42.0-52.0); Hemoglobin 14.3 g/dL (14.0-18.0); Immature Granulocyte Absolute 0.04 K/mm3 (0.00-0.031); Immature Granulocyte Percent A 0.3 % (0-0.5); Lymphocytes Percent Auto 40.5 % (18.3-44.2); Mean Corpuscular Hemoglobin 34.4 pg (26-34); Mean Corpuscular Volume 104.1 fl (80-100); Mean Platelet Volume 9.5 fl (7.4-10.4); Monocytes Absolute Auto 1.3 K/mm3 (0.1-0.6); Monocytes Percent Auto 9.6 % (2.6-8.5); Neutrophils Absolute Auto 5.7 K/mm3 (1.3-6.7); Neutrophils Percent Auto 42.3 % (45.5-73.1); Platelet Count Result 380 k/mm3 (150-375); Red Blood Count 4.16 M/mm3 (4.6-6.20); Red Cell Distribution Width 12.6 % (11.5-14.5); White Blood Count 13.3 K/mm3 (4.5-10.0)
[2022-06-08 19:37] LABS: INR 1.1; Partial Thromboplastin Time 34.7 SECONDS (22.3-36.8); Prothrombin Time 13.5 Seconds (11.1-14.7)
[2022-06-08 19:37] LABS: Acetaminophen 19 ug/mL (10-30); Ethanol < 10 mg/dL (<10); Salicylate < 1.0 mg/dL (2-20)
[2022-06-08 19:38] LABS: Alanine Aminotransferase 27 U/L (6-50); Albumin Level 4.8 g/dL (3.5-5.1); Alkaline Phosphatase 77 U/L (38-126); Anion Gap 25 mmol/L (8-16); Aspartate Amino Transferase 39 U/L (17-59); Bilirubin,Total 0.3 mg/dL (0.2-1.3); Blood Urea Nitrogen 31 mg/dL (9-20); Calcium 9.3 mg/dL (8.4-10.2); Carbon Dioxide 23 mmol/L (22-30); Chloride 98 mmol/L (98-107); Estimated CRCL calculation 67 ml/min; Estimated Glomerular Filt Rate > 60; Glucose 100 mg/dL (65-110); Magnesium 2.5 mg/dL (1.6-2.3); Potassium 4.2 mmol/L (3.4-5.0); Sodium 146 mmol/L (137-145)
[2022-06-08 19:46] LABS: Acetaminophen 19 ug/mL (10-30)
[2022-06-08 20:01] LABS: SARS-CoV-2 RNA PCR Negative
[2022-06-08 20:45] LABS: Appearance Urine Clear (Clear); Bilirubin Urine Negative (Negative); Blood Urine Negative (Negative); Color Urine Yellow (Yellow); Glucose Urine UA 2+ mg/dL (Negative); Ketones Urine Negative (Negative); Leukocyte Esterase Ur Negative LEU/UL (Negative); Nitrate Urine Negative (Negative); Protein Urine Negative (Negative); Specific Grav Ur <= 1.005 (1.001-1.035); Urobilinogen Urine 0.2 mg/dL (<2.0); pH Urine 5.5 (5.0-9.0)
[2022-06-08 20:48] LABS: RBC Urine 0-2 /hpf (0-2); WBC Urine 0-3 /hpf
[2022-06-08 20:49] LABS: Add Urine Microscopic? YES
[2022-06-08] MEDS: OLANZapine 10 MG INJ VIAL 5 MG IM (21:26)
--- NOTE | 2022-06-08 21:31 | PM.IMHP ---
H&P: HPI History of Present Illness Date/Time: 06/08/22 21:31 Chief Complaint: 57 years old male with past medical history of hypothyroidism diabetes hypertension GERD bipolar presented to the hospital with suicidal attempt patient ingested 15 tinazadine and 15 tylenol with codeine 1st panel level was normal patient became combative wanted to leave the hospital required restraints IV Haldol IV simplex IV Ativan Review of Systems Review of Systems: History limited patient still combative [facility] Past Medical History Medical History (Updated 06/08/22 @ 21:34 by Sydnie Cary MD) Bipolar 1 disorder Depression DM (diabetes mellitus) H/O: HTN (hypertension) HLD (hyperlipidemia) Hypothyroid Schizophrenia Surgical History Surgical History Surgical history unknown Family History Family History (Updated 06/09/22 @ 00:01 by Reba Hinojosa RN) Other Unknown family medical history Social History Social History Smoking status: Former smoker Alcohol intake: current Substance use type: marijuana Gender identity (if verbalized by the patient): Male Spiritual care concerns: No Meds Home Medications and Allergies Home Medications Medication Instructions Recorded Confirmed Type clonazepam 0.5 mg tablet 0.5 mg PO DAILY 01/01/20 06/08/22 History famotidine 40 mg tablet 40 mg PO DAILY 01/01/20 06/08/22 History levothyroxine 88 mcg tablet 88 mcg PO DAILY 01/01/20 06/08/22 History trihexyphenidyl 5 mg tablet 5 mg PO DAILY 01/01/20 06/08/22 History venlafaxine 75 mg capsule,extended 75 mg PO DAILY 01/01/20 06/08/22 History release 24 hr aspirin 81 mg tablet,delayed 81 mg PO DAILY 06/08/22 06/08/22 History release canagliflozin 100 mg tablet 100 mg PO DAILY 06/08/22 06/08/22 History (Invokana) loxapine succinate 25 mg capsule 25 mg PO DAILY 06/08/22 06/08/22 History loxapine succinate 50 mg capsule 50 mg PO DAILY 06/08/22 06/08/22 History valbenazine 80 mg capsule 80 mg PO DAILY 06/08/22 06/08/22 History (Ingrezza) venlafaxine 150 mg 150 mg PO DAILY 06/08/22 06/08/22 History capsule,extended release 24 hr Allergies Allergy/AdvReac Type Severity Reaction Status Date / Time ibuprofen Allergy Unknown Hives Verified 04/22/22 12:53 Vital Signs Vital Signs - 24 hr 06/08/22 18:07 Pulse Rate 121 H Respiratory Rate 20 Blood Pressure 158/59 H Pulse Oximetry 99 Oxygen Delivery Room Air Exam Narrative: GENERAL: Compatible. HEAD: Normocephalic, atraumatic. NECK: Supple. No adenopathy, no masses. RESPIRATORY: Clear to auscultation bilateral CARDIOVASCULAR: S1-S2. ABDOMINAL: Nondistended MUSCULOSKELETAL: No lower extremity SKIN: Warm, dry, normal color. No rashes. NEURO: Moves all extremities. PSYCHIATRIC: Appropriate mood and affect. Normal interaction. H&P: Results Labs Labs: Short CBC 06/08/22 Range/Units 19:17 WBC 13.3 H (4.5-10.0) K/mm3 Hgb 14.3 (14.0-18.0) g/dL Hct 43.3 (42.0-52.0) % Plt Count 380 H (150-375) k/mm3 BMP 06/08/22 19:17 Sodium 146 H Potassium 4.2 Chloride 98 Carbon Dioxide 23 BUN 31 H Creatinine 0.90 Glucose 100 Calcium 9.3 Liver Function 06/08/22 Range/Units 19:17 Total Bilirubin 0.3 (0.2-1.3) mg/dL AST 39 (17-59) U/L ALT 27 (6-50) U/L Alkaline Phosphatase 77 (38-126) U/L Albumin 4.8 (3.5-5.1) g/dL Urine 06/08/22 Range/Units 20:39 Urine Color Yellow (Yellow) Urine Appearance Clear (Clear) Urine pH 5.5 (5.0-9.0) Ur Specific [place] <= 1.005 (1.001-1.035) Urine Protein Negative (Negative) mg/dL Urine Glucose (UA) 2+ H (Negative) mg/dL Assessment and Plan Assessment and plan (1) Depression: Code(s): F32.9 - Major depressive disorder, single episode, unspecified Status: Acute Assessment and Plan: Assoc
--- NOTE | 2022-06-08 21:53 | PC.NURSE ---
patient continues to be agitated and swearing at staff. patient chewed through blood pressure cuff in attempt to remove it
[2022-06-08 22:21] LABS: Amphetamine Screen Urine Negative (Negative); Barbiturate Screen Urine Negative (Negative); Benzodiazepines Screen Urine Negative (Negative); Cannabinoid Screen Urine Positive (Negative); Cocaine Screen Urine Negative (Negative); Methadone Screen Urine Negative (Negative); Opiate Screen Urine Positive (Negative); Phencyclidine Screen Urine Negative (Negative)
[2022-06-08 22:35] VITALS: BP 127/72; BP 158/62; PULSE 78; PULSE 88; RESP 20; O2SAT 99
[2022-06-08 22:46] LABS: Acetaminophen < 10 ug/mL (10-30)
--- NOTE | 2022-06-08 22:47 | ADMGEN ---
This patient, Igor Gandara, was admitted to Intensive Care Unit-6. Patient/family oriented to hospital policies and general routines including ID bracelet, bed and alarms, visiting hours, pain management, procedures, bathroom and other care routines, personal items, smoking policy, room service/diet, and visiting hours. Information on how to activate the Rapid Response Team has been discussed. Patient/Family are encouraged to report perceived risks to care and to ask questions if they do not understand what they are told or what they should do.
[2022-06-08 23:03] VITALS: BP 141/87; PULSE 86; RESP 20; TEMP 36.4; O2SAT 98
[2022-06-08 23:04] VITALS: BMI 18.6
[2022-06-08] MEDS: SODIUM CHLORIDE 0.9% IV 1,000 ML 100 ML IV CONT (23:20)
--- NOTE | 2022-06-08 23:33 | PC.NURSE ---
Pt brought to ICU in hard restraints. Pt stating that he wishes he could punch ICU staff in the face. Security walked through ICU. As they passed pt's room, pt states I am going to kill that red-headed doyle when I get out of here. They all deserve to . Pt has repeatedly stated that he wished I had just , but also denies that he took medication in attempt to kill himself. Pt states I did it because my sister wouldn't talk to me.
[2022-06-08 23:50] VITALS: PULSE 70; RESP 16
[2022-06-08] MEDS: dexmedeTOMIDine 400 MCG/100 ML 400 MCG/100 ML BAG IV CONT (23:50)
[2022-06-09] VITALS (23 sets, daily range): BP systolic 90–141; BP diastolic 58–98; PULSE 57–112; RESP 15–29; TEMP 36.6–37.4; O2SAT 93–100; BMI 18.3
[2022-06-09] MEDS: SODIUM CHLORIDE 0.9% IVPB
[2022-06-09] MEDS: DEXMEDETOMIDINE IVPB
--- NOTE | 2022-06-09 01:27 | PM.IMPN ---
Subjective Date/time seen: 06/08/22 23;45 Interval history: Patient seen and evaluated at bedside Objective Data Vital Signs Vital Signs: Vital Signs - 24 hr 06/08/22 18:07 06/08/22 21:41 06/08/22 22:35 Temperature Pulse Rate 121 H 88 78 Respiratory Rate 20 20 20 Blood Pressure 158/59 H 158/62 H 127/72 Pulse Oximetry 99 99 99 Oxygen Delivery Room Air 06/08/22 23:03 06/08/22 23:50 06/09/22 00:00 Temperature 97.6 F Pulse Rate 86 70 64 Respiratory Rate 20 16 16 Blood Pressure 141/87 H 96/60 L Pulse Oximetry 98 97 Oxygen Delivery 06/09/22 00:00 06/09/22 00:00 06/09/22 00:00 Temperature Pulse Rate 65 70 Respiratory Rate 16 Blood Pressure Pulse Oximetry Oxygen Delivery Room Air 06/09/22 00:11 Temperature Pulse Rate 65 Respiratory Rate 16 Blood Pressure Pulse Oximetry Oxygen Delivery Intake/Output Intake/Output: Intake & Output 06/06/22 06/07/22 06/08/22 06/09/22 23:59 23:59 23:59 23:59 Intake Total 1000 48.64 Balance 1000 48.64 Meds/Results Medications: Active Medications Generic Name Dose Route Start Last Admin Trade Name Freq PRN Reason Stop Dose Admin Dextrose 12.5 gm 06/08/22 21:45 Dextrose 50% 25 Gm/50 Ml Syringe IV PUSH PRN PRN Hypoglycemia Protocol Famotidine 20 mg 06/09/22 09:00 Famotidine 20 Mg Tablet PO Q12HR EZE Glucagon 1 mg 06/08/22 21:45 Glucagon For Inj 1 Mg Vial IM PRN PRN Hypoglycemia Protocol Glucose 15 gm 06/08/22 21:45 Glucose Oral Gel 15 Gm Of Glucse In 37.5 Gm Tube PO PRN PRN Hypoglycemia Protocol Sodium Chloride 1,000 mls @ 100 mls/hr 06/08/22 21:30 06/08/22 23:20 Normal Saline Iv IV CONT 100 mls/hr .Q10H EZE Administration Dextrose 1,000 mls @ 100 mls/hr 06/08/22 21:45 Dextrose 5% 1,000 Ml IVPB PRN PRN Hypoglycemia Protocol Dexmedetomidine HCl 400 mcg in 100 mls @ 11.2 mls/hr 06/08/22 00:00 Precedex 400 Mcg/100 Ml IV CONT .Q8H56M [facility] Protocol 0.7 MCG/KG/HR Insulin Aspart 3 - 6 units 06/09/22 08:00 Insulin Aspart (*Bkc) 100 Units/Ml SUB-Q TIDWM [facility] Protocol Lorazepam 1 mg 06/08/22 21:29 Lorazepam Inj (*Crx) 2 Mg/Ml Vial IV PUSH Q6H PRN Anxiety Polyethylene Glycol 17 gm 06/08/22 21:29 Polyethylene Glycol 3350 17 Gm Powd.Pack PO Q8HR PRN Constipation Labs Labs: Laboratory Results - last 24 hr 06/08/22 06/08/22 06/08/22 19:16 19:17 19:17 WBC 13.3 H RBC 4.16 L Hgb 14.3 Hct 43.3 MCV 104.1 H MCH 34.4 H MCHC 33.0 RDW 12.6 Plt Count 380 H MPV 9.5 Immature Gran % (Auto) 0.3 Neut % (Auto) 42.3 L Lymph % (Auto) 40.5 [place] % (Auto) 9.6 H Eos % (Auto) 6.6 H Baso % (Auto) 0.7 Lymph # (Auto) 5.40 H [place] # (Auto) 1.3 H Eos # (Auto) 0.9 H Baso # (Auto) 0.1 Abs Immat Gran (auto) 0.04 H Absolute Neuts (auto) 5.7 Absolute Nucleated RBC 0.0 Nucleated RBC % 0.0 PT 13.5 INR 1.1 APTT 34.7 Sodium 146 H Potassium 4.2 Chloride 98 Carbon Dioxide 23 Anion Gap 25 H BUN 31 H Creatinine 0.90 Estim Creat Clear Calc 67 Estimated GFR > 60 Glucose 100 Calcium 9.3 Magnesium 2.5 H Total Bilirubin 0.3 AST 39 ALT 27 Alkaline Phosphatase 77 Total Protein 8.0 Albumin 4.8 TSH 2.500 Urine Color Urine Appearance Urine pH Ur Specific [place] Urine Protein Urine Glucose (UA) Urine Ketones Ur Blood (Man) Urine Nitrate Urine Bilirubin Urine Urobilinogen Leukocyte Esterase Rfl Urine RBC Urine WBC Salicylates Urine Opiates Screen Urine Methadone Screen Acetaminophen Ur Barbiturates Screen Ur Phencyclidine Scrn Ur Amphetamine Screen U Benzodiazepines Scrn Urine Cocaine Screen U Cannabinoids Screen Ethyl Alcohol SARS-CoV-2 RNA
--- NOTE | 2022-06-09 02:36 | PC.NURSE ---
Irina from Poison Control updated to pt's condition. No new recommendations from Poison Control at this time.
[2022-06-09] MEDS: LORazepam INJ (*CRX) 2 MG/ML VIAL 1 MG IV PUSH (06:07)
--- NOTE | 2022-06-09 06:12 | PC.NURSE ---
Pt becoming increasingly belligerent with staff. Code purple called. Pt states that he is going to go home and kill myself again. Pt verbally abusive and using racial slurs towards staff members. Order obtained and pt placed in soft restraints at this time.
--- NOTE | 2022-06-09 06:33 | PC.NURSE ---
Pt continues to kick footboard even while in hard restraints. Footboard removed for pt safety.
[2022-06-09] MEDS: HALOPERIDOL LACTATE 5 MG/ML VIAL IV PUSH (06:40)
[2022-06-09] MEDS: dexmedeTOMIDine 400 MCG/100 ML 400 MCG/100 ML BAG 27.2 MCG IV CONT (07:20)
--- NOTE | 2022-06-09 08:41 | WPDCNINT ---
Assessment and Plan Assessment and plan (1) Intentional drug overdose: Code(s): T50.902A - Poisoning by unspecified drugs, medicaments and biological substances, intentional self-harm, initial encounter Status: Acute Assessment and Plan: Patient ingested tizanidine x 15 pills and Tylenol with codeine x15 pills. -he wanted to harm himself as his mother is at [facility], his sister is with the mother, he tried calling in she would not answer her phone, so he probably got anxious and wanted to kill himself as he is upset about his mother's health. -patient not answering if he still homicidal or suicidal -currently on Precedex infusion for belligerent, threatening and combative behavior -will continue Precedex infusion, IV fluids for now -p.r.n. Ativan (2) Suicide attempt: Code(s): T14.91XA - Suicide attempt, initial encounter Status: Acute Assessment and Plan: Suicide attempt/behavior -suicide precautions in place -bedside sitter -patient currently in soft restraints as he was a threat to the staff (3) Schizophrenia: Code(s): F20.9 - Schizophrenia, unspecified Status: Acute Assessment and Plan: History of schizophrenia -will hold antipsychotics at this time (4) Hypothyroid: Code(s): E03.9 - Hypothyroidism, unspecified Status: Acute Assessment and Plan: Will restart levothyroxine in the morning, if patient is able take p.o. (5) H/O: HTN (hypertension): Code(s): Z86.79 - Personal history of other diseases of the circulatory system Status: Acute Assessment and Plan: History of hypertension -blood pressures are stable at this time (6) DM (diabetes mellitus): Code(s): E11.9 - Type 2 diabetes mellitus without complications Status: Acute Assessment and Plan: Sliding scale insulin and Accu-Cheks for now -patient currently is not eating (7) Bipolar 1 disorder: Code(s): F31.9 - Bipolar disorder, unspecified Status: Acute Assessment and Plan: Will hold antidepressants at this time Plan DVT prophylaxis: SCDs Stress ulcer prophylaxis: Not indicated Nutrition: Currently not eating, if he wakes up more may feed him Code Status: Full code Critical Care Time Spent: 46 minutes Due to a high probability of clinically significant, life threatening deterioration, the patient required my highest level of preparedness to intervene emergently and I personally spent this critical care time directly and personally managing the patient. This critical care time included obtaining a history; examining the patient; pulse oximetry; ordering and review of studies; arranging urgent treatment with development of a management plan; evaluation of patient's response to treatment; frequent reassessment; and discussions with other providers. It was exclusive of separately billable procedures and treating other patients and teaching time. Please see Assessment and Plan section and the rest of the note for further information on patient assessment and treatment [facility] Consult Note Consult date: 06/09/22 Reason for consult: Intentional drug overdose with Tizanidine and Tylenol with codeine HPI: Igor Gandara is a 57 year old male with past medical history of bipolar 1 disorder, schizophrenia, diabetes, essential hypertension, hyperlipidemia, hypothyroidism presented the ED on 06/08/2022 with complains of wanting to kill himself after he overdosed on tizanidine x15 pills and Tylenol with codeine x15 pills.. He states that he was trying to call his sister was with his mother at [facility] in she was not answering a call so he took the medication overdose. Patient was threatening and aggressive and tried to walk on multiple times in the ER, had to be physically and chemically restrained. Patient received multiple doses of Ativan, Haldol, Zyprexa in the ER. Upon arrival to the ICU he again
[2022-06-09 09:13] LABS: Basophils Absolute Auto 0.1 K/mm3 (0.0-0.1); Basophils Percent Auto 0.3 % (0.2-1.2); Eosinophils Absolute Auto 0.2 K/mm3 (0-0.3); Eosinophils Percent Auto 1.1 % (0-4.4); Hematocrit 37.8 % (42.0-52.0); Hemoglobin 13.2 g/dL (14.0-18.0); Immature Granulocyte Absolute 0.11 K/mm3 (0.00-0.031); Immature Granulocyte Percent A 0.5 % (0-0.5); Lymphocytes Absolute Auto 1.21 K/mm3 (0.9-3.2); Mean Corpuscular HGB Conc 34.9 g/dl (32-36); Mean Corpuscular Hemoglobin 33.9 pg (26-34); Mean Corpuscular Volume 97.2 fl (80-100); Monocytes Percent Auto 5.1 % (2.6-8.5); Neutrophils Absolute Auto 17.4 K/mm3 (1.3-6.7); Platelet Count Result 298 k/mm3 (150-375); Red Blood Count 3.89 M/mm3 (4.6-6.20); Red Cell Distribution Width 12.3 % (11.5-14.5)
[2022-06-09] MEDS: SODIUM CHLORIDE 0.9% IV 1,000 ML 100 ML IV CONT ×2 (09:15→19:15)
[2022-06-09 09:27] LABS: Alanine Aminotransferase 29 U/L (6-50); Albumin Level 3.6 g/dL (3.5-5.1); Alkaline Phosphatase 61 U/L (38-126); Anion Gap 9 mmol/L (8-16); Aspartate Amino Transferase 63 U/L (17-59); Bilirubin,Total 0.6 mg/dL (0.2-1.3); Blood Urea Nitrogen 17 mg/dL (9-20); Calcium 8.2 mg/dL (8.4-10.2); Carbon Dioxide 23 mmol/L (22-30); Chloride 108 mmol/L (98-107); Estimated CRCL calculation 101 ml/min; Estimated Glomerular Filt Rate > 60; Glucose 102 mg/dL (65-110); Potassium 3.4 mmol/L (3.4-5.0); Sodium 140 mmol/L (137-145)
[2022-06-09] MEDS: dexmedeTOMIDine 400 MCG/100 ML 400 MCG/100 ML BAG 24 MCG IV CONT (11:00)
[2022-06-09] MEDS: FAMOTIDINE 20 MG TABLET PO (12:45)
[2022-06-09 12:53] LABS: Glucose Point of Care 124 mg/dl (65-105)
[2022-06-09] MEDS: LORazepam INJ (*CRX) 2 MG/ML VIAL IV PUSH ×3 (13:02→20:20)
[2022-06-09] MEDS: dexmedeTOMIDine 400 MCG/100 ML 400 MCG/100 ML BAG 20.8 MCG IV CONT (15:25)
[2022-06-09 18:27] LABS: Glucose Point of Care 99 mg/dl (65-105)
--- NOTE | 2022-06-09 20:26 | PHAR ---
Home Med Verification Patient's home meds are contained in both bottles and a weekly pillpack that is unit dosed with the meds for morning, evening and bedtime. Pill bottles --tylenol 3--empty. No med in bottle --tizanidine 4 mg--empty. No med in bottle --clonazepam 0.5 mg tab. Pill description: Imprint 1 2. Burke, scored, round --loxapine 25 mg cap. Pill description: Imprint: a kellyo and KARLA; 1396. Light green, dark green. Pill Pack AM Meds --Famotidine 40 mg tab. Pill description: Imprint: teva; 5729. film-coated, round, sanders --aspirin 81 mg EC tab. Pill description: Imprint: Raised heart. enteric-coated, yellow, round --invokana 100 mg tab. Pill description: Imprint: cfz; 100. film-coated, yellow, oblong --venlafaxine 75 mg ER cap. Pill description: Imprint: e; 74. peach, oblong --Fish Oil 1000 mg cap. Pill description: No imprint on pill. large gel-cap, yellow, clear --venlafaxine ER 150 mg cap. Pill description: Imprint: e; 89. dark orange, oblong --levothyroxine 88 mcg cap. Pill description: Imprint: 119. olive, scored, round Evening meds --lovastatin 20 mg tab. Pill description: Imprint: kalie; g02. light green, round --trihexiphenidyl 5 mg tab. Pill description: Imprint: 211 n. white, scored, round Bedtime meds --Ingrezza 80 mg cap. Pill description: Imprint: vbz 80; vbz 80. purple, oblong --loxapine 50 mg cap. Pill description: Imprint: a logo and KARLA; 1397. light blue, dark green, oblong --loxapine 25 mg cap. Pill description: Imprint: a maximo and KARLA; 1396. light green, dark green, oblong
[2022-06-09] MEDS: dexmedeTOMIDine 400 MCG/100 ML 400 MCG/100 ML BAG 17.6 MCG IV CONT (20:44)
[2022-06-09 20:50] LABS: Glucose Point of Care 102 mg/dl (65-105)
--- NOTE | 2022-06-09 21:20 | PC.NURSE ---
[place] from Poison Control updated to pt's condition. Poison Control is closing pt's case.
[2022-06-10] VITALS (8 sets, daily range): BP systolic 90–115; BP diastolic 50–70; PULSE 56–81; RESP 18–23; TEMP 36.9; O2SAT 93–97
[2022-06-10] MEDS: dexmedeTOMIDine 400 MCG/100 ML 400 MCG/100 ML BAG 20.8 MCG IV CONT (02:33)
[2022-06-10] MEDS: LORazepam INJ (*CRX) 2 MG/ML VIAL IV PUSH ×2 (02:40→08:21)
[2022-06-10] MEDS: OLANZapine 10 MG INJ VIAL IM (03:10)
[2022-06-10] MEDS: HALOPERIDOL LACTATE 5 MG/ML VIAL 10 MG IV PUSH (04:07)
--- NOTE | 2022-06-10 04:40 | PC.NURSE ---
Pt states that he is ready to go home and that when he does go home, he will kill himself. Pt then became increasingly agitated and belligerent with staff. Mary pugh called at [phone]. Dr. Joy and security at pt's bedside. Pt placed in restraints.
[2022-06-10] MEDS: SODIUM CHLORIDE 0.9% IV 1,000 ML 100 ML IV CONT (05:25)
[2022-06-10] MEDS: dexmedeTOMIDine 400 MCG/100 ML 400 MCG/100 ML BAG 24 MCG IV CONT (06:46)
--- NOTE | 2022-06-10 09:29 | PC.NURSE ---
Patient took home medication packet and Clonazepam at 8:40am. This packet includes, Famotidine, Aspirin, Venlafaxine, Fish oil, Venlafaxine, and Levothyroxin. Invokana was held because patient is not currently eating.
--- NOTE | 2022-06-10 09:40 | WPDINTPN ---
Progress Note: A&P Assessment and Plan (1) Intentional drug overdose: Code(s): T50.902A - Poisoning by unspecified drugs, medicaments and biological substances, intentional self-harm, initial encounter Status: Acute Assessment and Plan: Patient ingested tizanidine x 15 pills and Tylenol with codeine x15 pills. -he wanted to harm himself as his mother is at [facility], his sister is with the mother, he tried calling in she would not answer her phone, so he probably got anxious and wanted to kill himself as he is upset about his mother's health. -patient was to go home - pulled out his IV, any infusions at this time -patient did take his home medication -patient is stable and clear form crisis management to evaluate the patient -he will definitely require in-patient psych (2) Suicide attempt: Code(s): T14.91XA - Suicide attempt, initial encounter Status: Acute Assessment and Plan: Suicide attempt/behavior -suicide precautions in place -bedside sitter -patient in soft restraints (3) Schizophrenia: Code(s): F20.9 - Schizophrenia, unspecified Status: Acute Assessment and Plan: History of schizophrenia -will restart his anti psychotic medication, patient requested that he take only his medications from home, -medications were cross checked and was start patient on his home meds (4) Hypothyroid: Code(s): E03.9 - Hypothyroidism, unspecified Status: Acute Assessment and Plan: Continue levothyroxine (5) H/O: HTN (hypertension): Code(s): Z86.79 - Personal history of other diseases of the circulatory system Status: Acute Assessment and Plan: History of hypertension -blood pressures are stable at this time (6) DM (diabetes mellitus): Code(s): E11.9 - Type 2 diabetes mellitus without complications Status: Acute Assessment and Plan: Sliding scale insulin and Accu-Cheks for now -patient currently is not eating (7) Bipolar 1 disorder: Code(s): F31.9 - Bipolar disorder, unspecified Status: Acute Assessment and Plan: Will restart antidepressants Plan DVT prophylaxis: SCDs Stress ulcer prophylaxis: Not indicated Nutrition: Currently not eating, states he does not want to eat Code Status: Full code Critical Care Time Spent: 32 minutes Patient can be downgraded to medical status Due to a high probability of clinically significant, life threatening deterioration, the patient required my highest level of preparedness to intervene emergently and I personally spent this critical care time directly and personally managing the patient. This critical care time included obtaining a history; examining the patient; pulse oximetry; ordering and review of studies; arranging urgent treatment with development of a management plan; evaluation of patient's response to treatment; frequent reassessment; and discussions with other providers. It was exclusive of separately billable procedures and treating other patients and teaching time. Please see Assessment and Plan section and the rest of the note for further information on patient assessment and treatment Subjective Date/time seen: 06/10/22 09:40 Interval history: Reason for consult: Intentional drug overdose with tizanidine and Tylenol with codeine, suicidal attempt/behavior, combative, belligerent and threatening behavior with the staff in the ICU 06/10/2022: Patient remains on Precedex infusion, overnight did get belligerent and combative and received Haldol, Ativan and Zyprexa. This morning patient does not want to talk much or be examined, he states he is going to go take any of his medications. Poison Control has cleared him. He pulled out his IV lines, and is abusive and belligerent and threatening to which the nursing staff. Review of Systems Review of Systems: ROS unobtainable: Yes unobtainable due to medical condition and unobtaina
--- NOTE | 2022-06-10 09:40 | PCNFU ---
Nutrition Follow-Up Complete: Inadequate Energy Intake as related to overdose as evidenced by NPO goal: Meet estimated nutritional needs Patient has limited progress towards goal. Pt current nutrition is Full liquid. Last recorded weight is 54.7 kg. Bowel Motility: No Bm reported. Labs Reviewed:no labs to report. Meds Noted:not given Skin: WNL Additional Notes: Patient is currently on full liquid diet. He is refusing to eat. Spoke with LINEN GRADER this morning. Called sister, Nahomi yesterday. She states he uses a protein supplement at home called Nerdies Protein Powder mixed with milk. Discussed bringing in for oral consumption. Recommend a regular diet when advancing. Monitoring: Will monitor every 3 days.
--- NOTE | 2022-06-10 15:06 | PC.NURSE ---
Patient refuses to use urinal. Has been peeing off the side of the bed. Patient got out of bed (on side with pee) to sit on the couch. Patient told to stay in bed, because of the risk of slipping and falling. Patient refuses and told this nurse, Go fuck yourself. I can do whatever I want.
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
--- NOTE | 2022-06-10 17:01 | PC.NURSE ---
Patient was discharged to [place] police custody. Patient was wearing his clothes, and his belt, wallet, home medications, and keys were given to police in a patient belonging bag. Sister/guardian notified that patient was being taken to [facility].
--- NOTE | 2022-06-15 10:51 | PC.NURSE ---
restraint assessment by jean Klye made in [facility], [place]. disreguard
== END 2022-06-10 16:08 | DRG 817 ==
LOC: ANHED 21:36 → ANHICU 22:28
PROVIDERS: Admitting Provider Internal Medicine; Emergency Provider Emergency Medicine; PCP Internal Medicine; Visit Provider Internal Medicine
DX: T40.2X2A Poisoning by other opioids, intentional self-harm, initial encounter (principal); F20.9 Schizophrenia, unspecified; T39.1X2A Poisoning by 4-Aminophenol derivatives, intentional self-harm, initial encounter; T42.8X2A Poisoning by antiparkinsonism drugs and other central muscle-tone depressants, intentional self-harm, initial encounter; F31.9 Bipolar disorder, unspecified; E11.9 Type 2 diabetes mellitus without complications; E03.9 Hypothyroidism, unspecified; E78.5 Hyperlipidemia, unspecified; I10 Essential (primary) hypertension; K21.9 Gastro-esophageal reflux disease without esophagitis; Z20.822 Contact with and (suspected) exposure to COVID-19; Z87.891 Personal history of nicotine dependence
CPT/HCPCS: 36415; 80053; 80307; 81001; 82948; 83735; 84443; 85025; 85610; 85730; 96361; 96372; 96374; 99285; A9270; J1630; J2060; J7030; U0003; U0005

== ENCOUNTER 2022-08-06 18:46 | Emergency (ER) | payer OTHER, SELFPAY ==
--- NOTE | 2022-08-06 18:51 | ECG_ITS ---
Measurements Intervals [place] Rate: 92 P: 71 CA: 135 QRS: 84 QRSD: 115 T: 79 QT: 364 QTc: 452 Interpretive Statements SINUS RHYTHM INCOMPLETE RIGHT BUNDLE BRANCH BLOCK LOW QRS VOLTAGE IN PRECORDIAL LEADS BORDERLINE ECG COMPARED TO ECG 04/22/2022 12:46:55 NO SIGNIFICANT CHANGES Electronically Signed On 08-07-2022 8:24:59 HOG SCRAPER by Mark HO
--- NOTE | 2022-08-06 19:01 | ED.AMS ---
HPI - Altered Mental Status General Chief Complaint: Psychiatric Symptoms <Reji Butler MD - Last Filed: 08/07/22 19:06> Stated Complaint: SI <Reji Butler MD - Last Filed: 08/07/22 19:06> Time Seen by Provider: 08/06/22 23:03 <Reji Butler MD - Last Filed: 08/07/22 19:06> History of Present Illness HPI narrative: 57-year-old male presented to the emergency department after making suicidal statements. Police were called to the home by the sister because the patient was making suicidal statements. Patient texted multiple times to the sister that he wanted to kill himself. On the welfare check patient stated to police that he did want to kill himself and he was going to stick a pen in his eye. On arrival to the emergency department patient is agitated but states he no longer wants to . Patient states he is not suicidal. Patient states he has not drank alcohol in 2 years. Patient denies any current alcohol intoxication. Patient states he did not take medications with the intent of self-harm. Patient does have a history of schizophrenia, bipolar and anxiety. Patient was admitted in May for intentional drug overdose <Reji Butler MD - Last Filed: 08/07/22 19:06> Related Data Home Medications: Home Medications Medication Instructions Recorded Confirmed clonazepam 0.5 mg tablet 0.5 mg PO DAILY 01/01/20 06/08/22 famotidine 40 mg tablet 40 mg PO DAILY 01/01/20 06/08/22 levothyroxine 88 mcg tablet 88 mcg PO DAILY 01/01/20 06/08/22 trihexyphenidyl 5 mg tablet 5 mg PO DAILY 01/01/20 06/08/22 venlafaxine 75 mg capsule,extended 75 mg PO DAILY 01/01/20 06/08/22 release 24 hr aspirin 81 mg tablet,delayed 81 mg PO DAILY 06/08/22 06/08/22 release canagliflozin 100 mg tablet 100 mg PO DAILY 06/08/22 06/08/22 (Invokana) loxapine succinate 25 mg capsule 25 mg PO DAILY 06/08/22 06/08/22 loxapine succinate 50 mg capsule 50 mg PO DAILY 06/08/22 06/08/22 valbenazine 80 mg capsule 80 mg PO DAILY 06/08/22 06/08/22 (Ingrezza) venlafaxine 150 mg 150 mg PO DAILY 06/08/22 06/08/22 capsule,extended release 24 hr <Reji Butler MD - Last Filed: 08/07/22 19:06> Allergies/Adverse Reactions: Allergies Allergy/AdvReac Type Severity Reaction Status Date / Time ibuprofen Allergy Unknown Hives Verified 04/22/22 12:53 <Reji Butler MD - Last Filed: 08/07/22 19:06> Review of Systems Review of Systems: CONSTITUTIONAL: Denies fever, chills, or sweats. EYES: Denies visual changes, redness, or discharge. ENT: Denies rhinorrhea, congestion, sore throat, or otalgia. CARDIOVASCULAR: Denies chest pain, palpitations, or edema. RESPIRATORY: Denies cough or dyspnea. GASTROINTESTINAL: Denies abdominal pain, nausea, vomiting, or diarrhea. GENITOURINARY: Denies dysuria or hematuria. SKIN: Denies rash or itching. MUSCULOSKELETAL: Denies back pain, joint pain, or myalgia. NEUROLOGIC: Denies headache, numbness, or weakness. PSYCHIATRIC: Agitated <Reji Butler MD - Last Filed: 08/07/22 19:06> [facility] Past Medical History Medical History: Medical History (Updated 08/07/22 @ 05:59 by Michael Terry MD) Bipolar 1 disorder Depression DM (diabetes mellitus) H/O: HTN (hypertension) HLD (hyperlipidemia) Hypothyroid Schizophrenia <Reji Butler MD - Last Filed: 08/07/22 19:06> Surgical History Surgical History: Surgical History Surgical history unknown <Reji Butler MD - Last Filed: 08/07/22 19:06> Family History Family History: Family History (Updated 06/09/22 @ 00:01 by Reba Hinojosa RN) Other Unknown family medical history <Reji Butler MD - Last Filed: 08/07/22 19:06> Social History Social History: Social History Smoking status: Former smoker Alcohol intake: current Substance use type: marijuana Gender
[2022-08-06 19:21] VITALS: BP 152/105; PULSE 92; RESP 20; TEMP 36.6; O2SAT 99
[2022-08-06 19:27] LABS: Basophils Absolute Auto 0.1 K/mm3 (0.0-0.1); Basophils Percent Auto 0.7 % (0.2-1.2); Eosinophils Absolute Auto 0.4 K/mm3 (0-0.3); Eosinophils Percent Auto 4.6 % (0-4.4); Hematocrit 42.1 % (42.0-52.0); Hemoglobin 14.2 g/dL (14.0-18.0); Immature Granulocyte Absolute 0.03 K/mm3 (0.00-0.031); Immature Granulocyte Percent A 0.3 % (0-0.5); Lymphocytes Percent Auto 33.3 % (18.3-44.2); Mean Corpuscular HGB Conc 33.7 g/dl (32-36); Mean Corpuscular Hemoglobin 34.1 pg (26-34); Mean Platelet Volume 8.9 fl (7.4-10.4); Monocytes Absolute Auto 0.8 K/mm3 (0.1-0.6); Monocytes Percent Auto 8.3 % (2.6-8.5); Neutrophils Absolute Auto 4.8 K/mm3 (1.3-6.7); Neutrophils Percent Auto 52.8 % (45.5-73.1); Platelet Count Result 375 k/mm3 (150-375); Red Blood Count 4.17 M/mm3 (4.6-6.20); Red Cell Distribution Width 13.1 % (11.5-14.5)
[2022-08-06 19:38] LABS: Acetaminophen < 10 ug/mL (10-30); Alanine Aminotransferase 24 U/L (6-50); Albumin Level 4.6 g/dL (3.5-5.1); Alkaline Phosphatase 85 U/L (38-126); Anion Gap 7 mmol/L (8-16); Aspartate Amino Transferase 29 U/L (17-59); Bilirubin,Total 0.2 mg/dL (0.2-1.3); Blood Urea Nitrogen 21 mg/dL (9-20); Calcium 9.3 mg/dL (8.4-10.2); Carbon Dioxide 30 mmol/L (22-30); Chloride 101 mmol/L (98-107); Estimated CRCL calculation 99 ml/min; Estimated Glomerular Filt Rate > 60; Ethanol < 10 mg/dL (<10); Glucose 152 mg/dL (65-110); Magnesium 2.1 mg/dL (1.6-2.3); Potassium 4.1 mmol/L (3.4-5.0); Salicylate < 1.0 mg/dL (2-20); Sodium 138 mmol/L (137-145)
[2022-08-06 19:58] LABS: Mucus Urine Rare /lpf; RBC Urine 0-2 /hpf (0-2); Squamous Epithelial Cell Urine Rare /hpf (Few); WBC Urine 0-3 /hpf
[2022-08-06 20:00] LABS: Add Urine Microscopic? YES; Appearance Urine Clear (Clear); Bilirubin Urine Negative (Negative); Blood Urine Negative (Negative); Color Urine Yellow (Yellow); Glucose Urine UA 3+ mg/dL (Negative); Ketones Urine Negative (Negative); Leukocyte Esterase Ur Negative LEU/UL (Negative); Nitrate Urine Negative (Negative); Protein Urine Negative (Negative); Urobilinogen Urine 0.2 mg/dL (<2.0)
[2022-08-06 20:03] LABS: Influenza A QL RT-PCR Negative (Negative); Influenza B QL RT-PCR Negative (Negative); RSV RNA, RT-PCR Negative (Negative); SARS-CoV-2 RNA PCR Negative
[2022-08-06 20:04] LABS: Amphetamine Screen Urine Negative (Negative); Barbiturate Screen Urine Negative (Negative); Benzodiazepines Screen Urine Negative (Negative); Cannabinoid Screen Urine Positive (Negative); Cocaine Screen Urine Negative (Negative); Methadone Screen Urine Negative (Negative); Opiate Screen Urine Negative (Negative); Phencyclidine Screen Urine Negative (Negative)
--- NOTE | 2022-08-06 20:23 | PC.NURSE ---
Patient yelling obscene words in hallway. Security and safety spec tried to verbal deescalate patient. Dr. Butler to patients bedside and talked with patient. Patient offered medication to help him relax, patient reported to Dr. Butler he would like Ativan. Order for IM ativan given by Dr. Butler and administered by PERLA Raza.
[2022-08-06] MEDS: LORazepam INJ (*CRX) 2 MG/ML VIAL IM (20:29)
--- NOTE | 2022-08-06 23:22 | PC.NURSE ---
Pt cleared to go home on safety plan
--- NOTE | 2022-08-06 23:55 | PC.NURSE ---
Patient seen and evaluated by crisis and the decision made to discharge patient.
== END 2022-08-07 03:31 | disposition home or self-care (01) ==
PROVIDERS: Emergency Medicine; Emergency Provider Preventive Medicine Aerospace Medicine; PCP Internal Medicine
DX: F20.9 Schizophrenia, unspecified (principal); R45.851 Suicidal ideations; Z20.822 Contact with and (suspected) exposure to COVID-19; E11.9 Type 2 diabetes mellitus without complications; I10 Essential (primary) hypertension; E78.5 Hyperlipidemia, unspecified; E03.9 Hypothyroidism, unspecified; F31.9 Bipolar disorder, unspecified; Z87.891 Personal history of nicotine dependence; Z79.82 Long term (current) use of aspirin; Z79.84 Long term (current) use of oral hypoglycemic drugs
CPT/HCPCS: 36415; 80053; 80307; 81001; 83735; 84443; 85025; 87637; 93005; 96372; 99284; J1630; J2060

== ENCOUNTER 2022-08-07 02:56 | Emergency (ER) | payer OTHER, SELFPAY ==
[2022-08-07] VITALS (26 sets, daily range): BP systolic 114–154; BP diastolic 71–119; PULSE 76–124; RESP 11–30; TEMP 36.7–37; O2SAT 96–100
--- NOTE | ~2022-08-07 | CT_ITS ---
EXAMINATION: CT brain wo con DATE: 08/07/2022 04:40 INDICATION: Head injury with epistaxis and swollen left cheek. TECHNIQUE: Computed tomography (CT) of the head was performed without intravenous contrast. Sagittal and coronal reconstructions were performed. The mA was adjusted according to patient size. Iterative reconstruction technique was employed. The dose-length product was 681.00 mGy-cm. COMPARISON: None FINDINGS: No calvarial fracture. No acute intracranial hemorrhage, acute infarction or abnormal extra axial flu id collection. Ventricles are normal and symmetric. No mass/mass effect. Mild mucosal thickening in t he right maxillary and bilateral ethmoid sinuses. Minimal fluid potentially blood layering in the dep endent right maxillary sinus. Small mucous retention cyst in the left sphenoid sinus. The orbits and mastoid air cells are normal. IMPRESSION: 1. No calvarial fracture or acute intracranial process. Reviewed, dictated and finalized at location A. S REPRESENTATIVE PRINTING PAPER
--- NOTE | ~2022-08-07 | CT_ITS ---
EXAMINATION: 1. CT facial & cervical spine wo DATE: 08/07/2022 04:40 INDICATION: Head and facial injury with epistaxis TECHNIQUE: 1. Computed tomography (CT) of the maxillofacial region and of the cervical spine were performed with out intravenous contrast. Sagittal and coronal reconstructions of both regions were obtained. Automat ed exposure control and iterative reconstruction technique were employed. The dose-length product was 208.55 mGy-cm. COMPARISON: None. FINDINGS: Maxillofacial CT: Right malar contusion with soft tissue swelling and subcutaneous stranding. Subtle right zygomatic co mplex fracture. This includes a nondisplaced fracture extending across the zygomatic arch, nondisplac ed fracture along the lateral wall of the right maxillary sinus which extends inferiorly across the p osterior edentulous aspect of the right alveolar ridge. This fracture plane extends into the socket o f the posterior most remaining right maxillary first bicuspid where there is a pre-existing periapic al lucency. There is also a fracture along the inferior wall of the right orbit with a couple millime ter depression of a small fragment along the medial side of the infraorbital canal. No evident hernia tion of the inferior rectus muscle. There is a small amount of posterior layering blood in the right maxillary sinus as well as in a few of the right ethmoid air cells. Mucous retention cyst in the left maxillary sinus. Temporomandibular joints are normal alignment with mild left and moderate right ost eoarthritis. Dental disease with multiple missing teeth and numerous dental caries involving the mounika rity of the remaining teeth. Cervical spine CT: 18 degrees cervical dextrocurvature. 1 mm retrolisthesis C3 on C4. Vertebral body heights are normal. No acute fractures. Severe disc height loss at C6-C7, moderate to severe disc height loss at C3-C4 a nd mild to moderate disc height loss at C5-C6. Posterior disc osteophyte complexes at C3-C4 and C6-C7 resulting in mild central canal stenosis at these levels. There is multilevel moderate to severe lef t-sided and mild to moderate right-sided cervical facet osteoarthritis with additional severe right-s ided and moderate left-sided facet osteoarthritis at C7-T1. This along with severe uncovertebral oste oarthritis contributes to moderate neural foraminal stenosis on the left at C3-C4 and bilaterally at C6-C7. Less severe uncovertebral osteoarthritis and mild neural from stenosis at a few additional cer vical levels on the left and right. Cervical soft tissues are unremarkable. Mild biapical pleural-par enchymal scarring with mild paraseptal emphysema at the apices. Mild groundglass opacity right upper lobe unchanged since chest CT dated 01/27/2022 consistent with chronic interstitial lung disease or rel ated to chronic pneumonia. IMPRESSION: 1. Right zygomatic complex (tripod) fracture nondisplaced aside from to millimeter depression of a sm all fragment along the inferior orbital wall. 2. 18 degrees cervical dextrocurvature with moderate to severe cervical spondylosis but no acute osse ous abnormality. Reviewed, dictated and finalized at location A. TURNER IMPRESSION: 1. Right zygomatic complex (tripod) fracture nondisplaced aside from to millime ter depression of a small fragment along the inferior orbital wall. 2. 18 degrees cervical dextrocurvature with moderate to severe cervical spondyl osis but no acute osseous abnormality.
[2022-08-07] MEDS: HALOPERIDOL LACTATE 5 MG/ML VIAL (03:04)
[2022-08-07] MEDS: LORazepam INJ (*CRX) 2 MG/ML VIAL (03:04)
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
--- NOTE | 2022-08-07 03:31 | PC.NURSE ---
Unable to perform Acadia scale because patient is unwilling and uncooperative in answering questions.
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
--- NOTE | 2022-08-07 04:02 | PC.NURSE ---
Transferred care to Cat. Y, and Mandy Lam RN
[2022-08-07] MEDS: KETAMINE HCL (*CRX) 500 MG/10 ML VIAL 300 MG IM (04:10)
--- NOTE | 2022-08-07 04:48 | PC.NURSE ---
Patient taken on portable monitor to CT with RN. Upon return to the department patient moved to room 13 for monitoring after Ketamine administration.
[2022-08-07 05:14] LABS: Basophils Absolute Auto 0.1 K/mm3 (0.0-0.1); Basophils Percent Auto 0.4 % (0.2-1.2); Eosinophils Absolute Auto 0.1 K/mm3 (0-0.3); Eosinophils Percent Auto 0.9 % (0-4.4); Hematocrit 41.4 % (42.0-52.0); Hemoglobin 14.4 g/dL (14.0-18.0); Immature Granulocyte Absolute 0.05 K/mm3 (0.00-0.031); Immature Granulocyte Percent A 0.3 % (0-0.5); Lymphocytes Absolute Auto 2.15 K/mm3 (0.9-3.2); Lymphocytes Percent Auto 13.2 % (18.3-44.2); Mean Corpuscular HGB Conc 34.8 g/dl (32-36); Mean Corpuscular Hemoglobin 34.3 pg (26-34); Mean Corpuscular Volume 98.6 fl (80-100); Mean Platelet Volume 8.8 fl (7.4-10.4); Monocytes Absolute Auto 1.2 K/mm3 (0.1-0.6); Monocytes Percent Auto 7.5 % (2.6-8.5); Neutrophils Absolute Auto 12.7 K/mm3 (1.3-6.7); Neutrophils Percent Auto 77.7 % (45.5-73.1); Platelet Count Result 360 k/mm3 (150-375); Red Cell Distribution Width 12.7 % (11.5-14.5); White Blood Count 16.3 K/mm3 (4.5-10.0)
[2022-08-07 05:24] LABS: Acetaminophen < 10 ug/mL (10-30); Ethanol < 10 mg/dL (<10); Salicylate < 1.0 mg/dL (2-20)
[2022-08-07 05:25] LABS: Alanine Aminotransferase 28 U/L (6-50); Albumin Level 4.7 g/dL (3.5-5.1); Alkaline Phosphatase 85 U/L (38-126); Anion Gap 7 mmol/L (8-16); Aspartate Amino Transferase 37 U/L (17-59); Bilirubin,Total 0.3 mg/dL (0.2-1.3); Blood Urea Nitrogen 17 mg/dL (9-20); Calcium 9.5 mg/dL (8.4-10.2); Carbon Dioxide 28 mmol/L (22-30); Chloride 102 mmol/L (98-107); Estimated CRCL calculation 129 ml/min; Estimated Glomerular Filt Rate > 60; Glucose 114 mg/dL (65-110); Potassium 3.8 mmol/L (3.4-5.0); Sodium 137 mmol/L (137-145)
[2022-08-07 05:31] LABS: Amphetamine Screen Urine Negative (Negative); Barbiturate Screen Urine Negative (Negative); Benzodiazepines Screen Urine Negative (Negative); Cannabinoid Screen Urine Positive (Negative); Cocaine Screen Urine Negative (Negative); Methadone Screen Urine Negative (Negative); Phencyclidine Screen Urine Negative (Negative)
[2022-08-07 05:35] LABS: Opiate Screen Urine Negative (Negative)
--- NOTE | 2022-08-07 08:30 | PC.NURSE ---
pt in room asking to for help to the bathroom. pt calm this AM pt back to bed with sheets covering head. asked for door closed to keep out the noise no other needs at this time
--- NOTE | 2022-08-07 11:23 | PC.NURSE ---
fax sent to [facility] as requested
--- NOTE | 2022-08-07 12:56 | PC.NURSE ---
pt declined offers of breakfast and lunch at this time
--- NOTE | 2022-08-07 15:22 | PC.NURSE ---
pt has been declined [facility]
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
--- NOTE | 2022-08-07 16:13 | PC.NURSE ---
precautionary reg diet dinner tray ordered
--- NOTE | 2022-08-08 07:16 | PC.NURSE ---
Report given to PERLA Kapoor and PERLA Alexander.
--- NOTE | 2022-08-08 15:18 | PC.NURSE ---
[facility] pt - unable to meet his needs
[2022-08-08 17:09] VITALS: BP 131/88; PULSE 95; RESP 20; TEMP 36.7; O2SAT 100
--- NOTE | 2022-08-08 17:16 | PC.NURSE ---
Spoke to [facility], attempted to have patient speak to [facility] for an assessment. Patient uncooperative and hung up the phone. When asked questions, patient repeating figure it out to this RN.
--- NOTE | 2022-08-08 17:51 | PC.NURSE ---
[facility] requesting new CBC. EDP [facility] notified, CBC ordered.
[2022-08-08 18:53] LABS: Basophils Absolute Auto 0.1 K/mm3 (0.0-0.1); Basophils Percent Auto 0.4 % (0.2-1.2); Eosinophils Absolute Auto 0.1 K/mm3 (0-0.3); Hematocrit 45.1 % (42.0-52.0); Hemoglobin 15.8 g/dL (14.0-18.0); Immature Granulocyte Absolute 0.03 K/mm3 (0.00-0.031); Immature Granulocyte Percent A 0.2 % (0-0.5); Lymphocytes Absolute Auto 3.27 K/mm3 (0.9-3.2); Lymphocytes Percent Auto 26.7 % (18.3-44.2); Mean Corpuscular Hemoglobin 34.7 pg (26-34); Mean Corpuscular Volume 99.1 fl (80-100); Monocytes Absolute Auto 1.2 K/mm3 (0.1-0.6); Monocytes Percent Auto 9.6 % (2.6-8.5); Neutrophils Absolute Auto 7.6 K/mm3 (1.3-6.7); Neutrophils Percent Auto 62.1 % (45.5-73.1); Platelet Count Result 396 k/mm3 (150-375); Red Blood Count 4.55 M/mm3 (4.6-6.20); Red Cell Distribution Width 12.8 % (11.5-14.5); White Blood Count 12.3 K/mm3 (4.5-10.0)
--- NOTE | 2022-08-08 19:19 | PC.NURSE ---
Updated CBC, nurse notes, and vitals sent to [facility].
[2022-08-08 19:24] VITALS: BP 158/103; PULSE 97; RESP 16; O2SAT 96
[2022-08-08] MEDS: ACETAMINOPHEN 500 MG TABLET 1000 MG PO (20:44)
--- NOTE | 2022-08-08 22:00 | PC.NURSE ---
Oscar from [place] states pills have to be in bottle. RN to contact renal case manager in the AM. pt. will get a bed at [facility] in the morning due to pt. needing a private room.
--- NOTE | 2022-08-09 05:10 | PC.NURSE ---
spoke w/ Gloria from [facility], states she will follow up w/ pt. director of casework department. states she is through chest [facility]
--- NOTE | 2022-08-09 07:19 | PC.NURSE ---
report to PERLA Cline
--- NOTE | 2022-08-09 07:19 | PC.NURSE ---
pt. sister here to get pt. keys to get pt. medications. pt. sister brought pill pack. pt. sister states she will keep. pt. car keys. [facility] states actual pill bottles need to be provided for proper treatment and admission to [facility]. [facility] accepts pt. pending bed assignment and rearrangement of floor to make pt. a private room. Oscar states as long as clinical research spec is willing to bring pt. medications to that hospital, pt. can be transported to facility.
--- NOTE | 2022-08-09 07:53 | PC.NURSE ---
pts business case analyst colby will bring pts home medications here to [facility]. pt resting quietly on stretcher with no distress noted. continue waiting bed assignment at [facility].
--- NOTE | 2022-08-09 10:30 | PC.NURSE ---
bed assignment received and report given to [facility]. [facility] contacted for transport. pt resting quietly on stretcher.
[2022-08-09 10:59] VITALS: BP 148/100; PULSE 85; RESP 16; O2SAT 98
--- NOTE | 2022-08-09 11:45 | PC.NURSE ---
pt care transferred to [facility] for transport to [facility] [id number]
== END 2022-08-09 11:45 ==
PROVIDERS: Emergency Medicine; Preventive Medicine Aerospace Medicine; Emergency Provider Emergency Medicine; PCP Internal Medicine
DX: R45.851 Suicidal ideations (principal); S02.40EA Zygomatic fracture, right side, initial encounter for closed fracture; F31.9 Bipolar disorder, unspecified; F20.9 Schizophrenia, unspecified; E11.9 Type 2 diabetes mellitus without complications; I10 Essential (primary) hypertension; E78.5 Hyperlipidemia, unspecified; E03.9 Hypothyroidism, unspecified; Z79.82 Long term (current) use of aspirin; Z87.891 Personal history of nicotine dependence; W18.39XA Other fall on same level, initial encounter
CPT/HCPCS: 36415; 51701; 70450; 70486; 72125; 80053; 80307; 84443; 85025; 93005; 96372; 99285; A9270; J1630; J2060

== ENCOUNTER 2022-12-23 21:57 | Emergency (ER) | payer OTHER, SELFPAY ==
[2022-12-23 22:02] VITALS: BP 124/76; PULSE 85; RESP 18; O2SAT 97
--- NOTE | 2022-12-23 22:14 | PC.NURSE ---
Pt c/o pain to left incisor for I don't know how long . Pt states there's a hole in the back . Pt states he took tylenol and 70mg of THC today for his pain. He does not have a dentist.
--- NOTE | 2022-12-23 22:30 | PC.NURSE ---
this RN called friend per pt request to come pick pt up from ED.
--- NOTE | 2022-12-23 22:39 | ED.DENTAL ---
HPI - Dental/Oral General Chief complaint: Dental/Oral Stated complaint: abscess tooth Time Seen by Provider: 12/23/22 22:28 History of Present Illness HPI Narrative: 57-year-old male with history of multiple caries reports for evaluation of tooth pain that started today. Patient states he knows he needs to see a dentist . Patient states he plans to make an appointment for an [facility] school of dentistry. He denies fever, body aches or chills, difficulty breathing, lip swelling. He does report mild facial swelling above his left lip. Related Data Home Medications Medication Instructions Recorded Confirmed clonazepam 0.5 mg tablet 0.5 mg PO DAILY 01/01/20 06/08/22 famotidine 40 mg tablet 40 mg PO DAILY 01/01/20 06/08/22 levothyroxine 88 mcg tablet 88 mcg PO DAILY 01/01/20 06/08/22 trihexyphenidyl 5 mg tablet 5 mg PO DAILY 01/01/20 06/08/22 venlafaxine 75 mg capsule,extended 75 mg PO DAILY 01/01/20 06/08/22 release 24 hr aspirin 81 mg tablet,delayed 81 mg PO DAILY 06/08/22 06/08/22 release canagliflozin 100 mg tablet 100 mg PO DAILY 06/08/22 06/08/22 (Invokana) loxapine succinate 25 mg capsule 25 mg PO DAILY 06/08/22 06/08/22 loxapine succinate 50 mg capsule 50 mg PO DAILY 06/08/22 06/08/22 valbenazine 80 mg capsule 80 mg PO DAILY 06/08/22 06/08/22 (Ingrezza) venlafaxine 150 mg 150 mg PO DAILY 06/08/22 06/08/22 capsule,extended release 24 hr Allergies Allergy/AdvReac Type Severity Reaction Status Date / Time ibuprofen Allergy Unknown Hives Verified 12/23/22 21:58 Review of Systems Review of Systems: CONSTITUTIONAL: Denies fever, chills EYES: Denies visual changes, redness, or discharge. ENT: See HPI CARDIOVASCULAR: Denies chest pain, palpitations, or edema. RESPIRATORY: Denies cough or dyspnea. GASTROINTESTINAL: Denies abdominal pain, nausea, vomiting, or diarrhea. GENITOURINARY: Denies dysuria or hematuria. SKIN: Denies rash or itching. MUSCULOSKELETAL: Denies back pain, joint pain, or myalgia. NEUROLOGIC: Denies headache, numbness, dizziness, or weakness. PSYCHIATRIC: Denies anxiety or depression. [facility] Past Medical History Medical History Bipolar 1 disorder Depression DM (diabetes mellitus) H/O: HTN (hypertension) HLD (hyperlipidemia) Hypothyroid Schizophrenia Surgical History Surgical History Surgical history unknown Family History Family History Other Unknown family medical history Social History Social History Smoking status: Former smoker Alcohol intake: current Substance use type: does not use Gender identity (if verbalized by the patient): Male Spiritual care concerns: No Exam Narrative: GENERAL: Well-appearing, in no acute distress. HEAD: Normocephalic EYES: PERRLA ENT: Multiple caries throughout. Tenderness to the gingiva overlying tooth #11. No periapical or deep space abscess appreciated. Floor the mouth is soft, no crepitus. No significant facial swelling or submandibular swelling. NECK: Supple. CHEST: No respiratory distress. Clear to auscultation, no adventitious breath sounds. HEART: Regular rate and rhythm. No murmur heard. Normal peripheral pulses. EXTREMITIES: Normal range of motion. No edema. SKIN: Warm, dry, no rash. NEURO: No focal deficits. Alert and oriented x3. PSYCH: Normal mood and affect. Course Vital Signs Vital signs: Vital Signs Pulse Rate 85 12/23/22 22:02 Respiratory Rate 18 12/23/22 22:02 Blood Pressure 124/76 12/23/22 22:02 Pulse Oximetry 97 12/23/22 22:02 Oxygen Delivery Room Air 12/23/22 22:02 Pulse Rate 85 12/23/22 22:02 Respiratory Rate 18 12/23/22 22:02 Blood Pressure 124/76 12/23/22 22:02 Pulse Oximetry 97 12/23/22 22:02 Oxygen Delivery Room Air
[2022-12-23] MEDS: AMOXICILLIN/CLAVULANATE K 875-125 MG TAB 1 TABLET PO (23:00)
== END 2022-12-23 23:06 | disposition home or self-care (01) ==
PROVIDERS: Emergency Provider Physician Assistant; PCP Internal Medicine
DX: K02.9 Dental caries, unspecified (principal); E11.9 Type 2 diabetes mellitus without complications; I10 Essential (primary) hypertension; E78.5 Hyperlipidemia, unspecified; E03.9 Hypothyroidism, unspecified; F20.9 Schizophrenia, unspecified; F31.9 Bipolar disorder, unspecified; Z87.891 Personal history of nicotine dependence; Z79.82 Long term (current) use of aspirin; Z79.84 Long term (current) use of oral hypoglycemic drugs
CPT/HCPCS: 99283; A9270

== ENCOUNTER 2023-03-01 12:27 | Emergency (ER) | payer OTHER, SELFPAY ==
--- NOTE | ~2023-03-01 | XR_ITS ---
EXAMINATION: XR abdomen/kub 1V DATE: 03/01/2023 13:06 INDICATION: Abdominal pain. TECHNIQUE: A supine view of the abdomen on 2 radiographs was obtained. COMPARISON: None. FINDINGS: There are no dilated loops of bowel. There is a moderate volume of stool in the colon. Calc ifications in the pelvis are likely phleboliths. IMPRESSION: 1. Normal bowel gas pattern. Reviewed, dictated and finalized at location A.
[2023-03-01 12:40] VITALS: BP 169/73; PULSE 85; RESP 18; TEMP 36.9; O2SAT 98
--- NOTE | 2023-03-01 12:42 | ED.GENADULT ---
HPI - General Adult General Chief complaint: Unspecified Stated complaint: elevated bp level Time Seen by Provider: 03/01/23 12:42 Source: patient Mode of arrival: ambulatory Limitations: no limitations History of Present Illness HPI narrative: 58 yo M presents with his c web developer requesting to have his BP checked. Pt reports upset stomach and nausea for 3 days. Was seen at ER for high BP and also told he may have stomach virus. Was started on lisinopril. Also given zofran but has not taken this medication. Pt's sister checked his BP this AM due to him not feeling well and was 180 systolic. She states she later checked it and it came down. He has appt with his PCP tomorrow but has been very anxious about his upset stomach. has not had BP for 3 days. Pt in no distress. hx of bipolar. calm and cooperative. All systems reviewed and negative except as noted above. Related Data Home Medications Medication Instructions Recorded Confirmed famotidine 40 mg tablet 40 mg PO DAILY 01/01/20 03/01/23 levothyroxine 88 mcg tablet 88 mcg PO DAILY 01/01/20 03/01/23 trihexyphenidyl 5 mg tablet 5 mg PO DAILY 01/01/20 03/01/23 venlafaxine 75 mg capsule,extended 75 mg PO DAILY 01/01/20 03/01/23 release 24 hr aspirin 81 mg tablet,delayed 81 mg PO DAILY 06/08/22 03/01/23 release canagliflozin 100 mg tablet 100 mg PO DAILY 06/08/22 03/01/23 (Invokana) loxapine succinate 25 mg capsule 25 mg PO DAILY 06/08/22 03/01/23 venlafaxine 150 mg 150 mg PO DAILY 06/08/22 03/01/23 capsule,extended release 24 hr acetaminophen 500 mg tablet 500 mg PO PRN PRN Pain, Mild 03/01/23 03/01/23 clonazepam 0.5 mg tablet 0.5 mg PO PRN PRN Anxiety 03/01/23 03/01/23 hydroxyzine HCl 25 mg tablet 25 mg PO DAILY 03/01/23 03/01/23 lisinopril 10 mg tablet 10 mg PO DAILY 03/01/23 03/01/23 lovastatin 20 mg tablet 20 mg PO DAILY 03/01/23 03/01/23 mirtazapine 15 mg tablet 15 mg PO DAILY 03/01/23 03/01/23 olanzapine 10 mg tablet 10 mg PO DAILY 03/01/23 03/01/23 tizanidine 4 mg tablet 4 mg PO DAILY 03/01/23 03/01/23 Allergies Allergy/AdvReac Type Severity Reaction Status Date / Time ibuprofen Allergy Unknown Hives Verified 03/01/23 13:07 Review of Systems Review of Systems: CONSTITUTIONAL: Denies fever, chills, or sweats. EYES: Denies visual changes, redness, or discharge. ENT: Denies rhinorrhea, congestion, sore throat, or otalgia. CARDIOVASCULAR: Denies chest pain, palpitations, or edema. RESPIRATORY: Denies cough or dyspnea. GASTROINTESTINAL: Reports upset stomach, nausea, constipation. Denies vomiting, or diarrhea. GENITOURINARY: Denies dysuria or hematuria. SKIN: Denies rash or itching. MUSCULOSKELETAL: Denies back pain, joint pain, or myalgia. NEUROLOGIC: Denies headache, numbness, or weakness. PSYCHIATRIC: Denies anxiety or depression. All other systems reviewed are negative, except as documented in HPI. PMFSH Past Medical History Medical History Bipolar 1 disorder Depression DM (diabetes mellitus) H/O: HTN (hypertension) HLD (hyperlipidemia) Hypothyroid Schizophrenia Surgical History Surgical History Surgical history unknown Family History Family History Other Unknown family medical history Social History Social History Smoking status: Former smoker Alcohol intake: current Substance use type: does not use Gender identity (if verbalized by the patient): Male Spiritual care concerns: No Comments At time of signature, agree with nursing past medical, surgical, social and family history. There is no relevant family history pertinent to the presenting complaint. Exam Narrative: GENERAL: This is a well-nourished, well-developed patient, in no apparent distress. HEAD: normocephalic, atraumatic. EYE
[2023-03-01] MEDS: ONDANSETRON HCL ODT 4 MG TABLET SUBLINGUAL (13:15)
== END 2023-03-01 13:25 | disposition home or self-care (01) ==
PROVIDERS: Emergency Provider Nurse Practitioner Family; PCP Internal Medicine
DX: R11.0 Nausea (principal); K59.00 Constipation, unspecified; Z87.891 Personal history of nicotine dependence; E11.9 Type 2 diabetes mellitus without complications; I10 Essential (primary) hypertension; E78.5 Hyperlipidemia, unspecified; E03.9 Hypothyroidism, unspecified
CPT/HCPCS: 74018; 99213; A9270; G0463

== ENCOUNTER 2023-03-21 09:19 | Outpatient (CLI) | payer OTHER, SELFPAY ==
--- NOTE | ~2023-03-21 | CT_ITS ---
EXAMINATION: CT diagnostic chest wo con DATE: 03/21/2023 09:36 INDICATION: Left upper lobe nodule TECHNIQUE: Computed tomography (CT) of the chest was performed without intravenous contrast. Automate d exposure control and iterative reconstruction technique were employed. Exam dose: 78.47 mGy-cm tot al exam DLP. COMPARISON: 04/22/2022 portable AP chest 01/27/2022 CT chest 03/09/2021 CT chest FINDINGS: Stable posterior segment left upper lobe scar, unchanged since 09/18/2020 CT lung screening examination. Stable patchy groundglass density and scarring, right upper lobe since 03/09/2021. Stable mild bilateral apical scarring. Calcified right lower lobe pulmonary granuloma and calcified right hilar and subcarinal nodes consist ent with old pulmonary granulomatous disease. No pulmonary infiltrate or consolidation or interval suspicious pulmonary mass lesion. No hilar or mediastinal mass lesion or lymphadenopathy. No thoracic aortic aneurysm. Normal heart siz e. No pericardial or pleural effusion. Small sliding hiatal hernia. Probable left renal cyst. No adrenal mass lesions are noted. Bilateral old healed rib fractures. IMPRESSION: Stable bilateral upper lobe scarring since 03/09/2021. Reviewed, dictated and finalized at Location A. Reviewed, dictated and finalized at location L.
== END 2023-03-21 09:20 | disposition home or self-care (01) ==
PROVIDERS: PCP Internal Medicine; Visit Provider Internal Medicine
DX: R91.1 Solitary pulmonary nodule (principal); K44.9 Diaphragmatic hernia without obstruction or gangrene; J98.4 Other disorders of lung
CPT/HCPCS: 71250

== ENCOUNTER 2023-05-22 09:27 | Outpatient (CLI) | payer OTHER, SELFPAY ==
--- NOTE | ~2023-05-22 | XR_ITS ---
XR lumbar spine 2-3V DATE: 05/22/2023 09:44 INDICATION: Back pain. No injury. TECHNIQUE: AP, lateral, coned lateral lumbosacral views COMPARISON: None FINDINGS: There is thoracolumbar levoscoliosis which may be due in part to positioning. No fracture or bone destruction of the lumbar vertebrae. The lumbar pedicles are intact. Lumbar and l umbosacral interspaces appear well preserved. The sacroiliac joints appear normal. IMPRESSION: Levoscoliosis; otherwise unremarkable lumbar spine Reviewed, dictated and finalized at location B.
== END 2023-05-22 09:28 | disposition home or self-care (01) ==
PROVIDERS: PCP Internal Medicine; Visit Provider Internal Medicine
DX: M41.85 Other forms of scoliosis, thoracolumbar region (principal)
CPT/HCPCS: 72100; J1100; J2405; J2704

== ENCOUNTER 2023-09-01 07:27 | Emergency (ER) | payer OTHER, SELFPAY ==
[2023-09-01] VITALS (8 sets, daily range): BP systolic 190–197; BP diastolic 105–113; PULSE 71–87; RESP 11–22; TEMP 36.9; O2SAT 98–100
--- NOTE | ~2023-09-01 | XR_ITS ---
EXAMINATION: XR chest 2V DATE: 09/01/2023 08:04 INDICATION: Hypertension TECHNIQUE: AP and lateral views of the chest are obtained. COMPARISON: 04/22/2022 FINDINGS: The lungs are hyperinflated but free of acute opacities. No pleural effusion or pneumothora x. The cardiomediastinal silhouette is normal. There is moderate thoracic spondylosis. Healed bilater al rib fractures are noted. IMPRESSION: 1. No acute cardiopulmonary abnormality. Reviewed, dictated and finalized at location B. SSING MACHINE OPERATOR
--- NOTE | 2023-09-01 07:45 | ECG_ITS ---
Measurements Intervals [place] Rate: 72 P: -48 MS: 129 QRS: 47 QRSD: 96 T: 69 QT: 383 QTc: 421 Interpretive Statements ECTOPIC ATRIAL RHYTHM INCOMPLETE RIGHT BUNDLE BRANCH BLOCK BORDERLINE ECG COMPARED TO ECG 08/06/2022 19:37:25 NO SIGNIFICANT CHANGE/UNUSUAL P-WAVE VECTOR Electronically Signed On 09-01-2023 15:30:37 CABLE LAYER by Atul Avery M.D.
[2023-09-01 08:00] LABS: Basophils Absolute Auto 0.1 K/mm3 (0.0-0.1); Basophils Percent Auto 0.4 % (0.2-1.2); Eosinophils Absolute Auto 0.2 K/mm3 (0-0.3); Eosinophils Percent Auto 1.6 % (0-4.4); Hematocrit 43.4 % (42.0-52.0); Hemoglobin 14.7 g/dL (14.0-18.0); Immature Granulocyte Absolute 0.06 K/mm3 (0.00-0.031); Immature Granulocyte Percent A 0.4 % (0-0.5); Lymphocytes Absolute Auto 2.06 K/mm3 (0.9-3.2); Lymphocytes Percent Auto 15.4 % (18.3-44.2); Mean Corpuscular HGB Conc 33.9 g/dl (32-36); Mean Corpuscular Hemoglobin 32.9 pg (26-34); Mean Corpuscular Volume 97.1 fl (80-100); Mean Platelet Volume 8.7 fl (7.4-10.4); Monocytes Absolute Auto 0.9 K/mm3 (0.1-0.6); Monocytes Percent Auto 6.3 % (2.6-8.5); Neutrophils Absolute Auto 10.1 K/mm3 (1.3-6.7); Neutrophils Percent Auto 75.9 % (45.5-73.1); Platelet Count Result 463 k/mm3 (150-375); Red Blood Count 4.47 M/mm3 (4.6-6.20); Red Cell Distribution Width 12.3 % (11.5-14.5); White Blood Count 13.4 K/mm3 (4.5-10.0)
[2023-09-01 08:09] LABS: Alanine Aminotransferase 24 U/L (6-50); Albumin Level 4.3 g/dL (3.5-5.1); Alkaline Phosphatase 80 U/L (38-126); Anion Gap 9 mmol/L (8-16); Aspartate Amino Transferase 34 U/L (17-59); Bilirubin,Total 0.4 mg/dL (0.2-1.3); Blood Urea Nitrogen 8 mg/dL (9-20); Calcium 9.5 mg/dL (8.4-10.2); Carbon Dioxide 24 mmol/L (22-30); Chloride 103 mmol/L (98-107); Estimated CRCL calculation 93 ml/min; Estimated Glomerular Filt Rate > 60; Glucose 146 mg/dL (65-110); Lipase 41 U/L (23-300); Potassium 3.6 mmol/L (3.4-5.0); Sodium 136 mmol/L (137-145)
[2023-09-01 08:12] LABS: INR 0.9; Prothrombin Time 12.8 Seconds (11.1-14.7)
[2023-09-01 08:13] LABS: Partial Thromboplastin Time 34.9 SECONDS (22.3-36.8)
[2023-09-01 08:20] LABS: Troponin I < 0.012 ng/mL (0.000-0.034)
--- NOTE | 2023-09-01 08:38 | PC.NURSE ---
family member in room, disturbing the monitors. pt asked not to. family member irritable. again asked not to interfere with monitors or we would ask to leave and go to lobby. educated on the need to not have BP cuff inflating.
--- NOTE | 2023-09-01 09:06 | PC.NURSE ---
pt left with his sister, asked for the iv to be removed. sister were angry that doctor not in room. sister talking nonsense about having her brother slammed to the floor informed that this would not happen. talked to the pt about seeing Dr Chaitanya Townsend, pt himself agreeable
== END 2023-09-01 09:34 | disposition left against medical advice (07) ==
PROVIDERS: Emergency Medicine; Emergency Provider Physician Assistant; PCP Internal Medicine
DX: I10 Essential (primary) hypertension (principal)
CPT/HCPCS: 36415; 71046; 80053; 83690; 84484; 85025; 85610; 85730; 93005; 99199

== ENCOUNTER 2024-01-15 09:36 | Outpatient (CLI) | payer OTHER, SELFPAY ==
--- NOTE | ~2024-01-15 | CT_ITS ---
CT Scan of the Chest without Contrast: Clinical Indication: Left upper lobe pulmonary nodule Technique: Contiguous sections were acquired throughout the chest without intravenous contrast. Dose reduction technique was used on this scan by utilizing automated exposure control and iterative recon struction technique. The dose-length product (DLP) was 77.68 mGy-cm. COMPARISON: 03/21/2023 Findings: There is no evidence of any significant mediastinal, hilar or axillary lymphadenopathy. The mediastin al soft tissues appear normal. There is no evidence of pleural or pericardial effusion. Stable amorphous groundglass opacities in the right upper lobe/right lung apex. Stable 9 mm left uppe r lobe pulmonary nodule abutting the fissure. Images through the upper abdomen reveal no abnormalities. Impression: Stable 9 mm left upper lobe pulmonary nodule, abutting the fissure. Stable amorphous ground glass opacities in the right upper lobe/right lung apex. Reviewed, dictated and finalized at [facility]. Impression: Stable 9 mm left upper lobe pulmonary nodule, abutting the fissure. Stable amorphous ground glass opacities in the right upper lobe/right lung apex .
== END 2024-01-15 09:37 | disposition home or self-care (01) ==
LOC: ANHIMG 09:37
PROVIDERS: PCP Internal Medicine; Visit Provider Internal Medicine
DX: R91.1 Solitary pulmonary nodule (principal); R91.8 Other nonspecific abnormal finding of lung field
CPT/HCPCS: 71250